=== PATIENT | male | born 1945 | race Hispanic/Latino ===

== ENCOUNTER → 2017-11-07 | Outpatient (CLI) | payer MEDICARE, OTHER ==
[~2017-11-07] MED LIST: IOPAMIDOL 370 MG/ML 200 ML INFUS..BTL INJ ONE; SODIUM CHLORIDE 0.9% 50ML 50 ML ONE
[2017-11-07 15:38] LABS: BASOPHILS # (AUTO) 0.1 (0.0-0.1); BASOPHILS % 0.5 % (0.0-1.0); EOSINOPHILS # (AUTO) 0.1 (0.0-0.4); HEMATOCRIT 41.1 % (38.2-49.6); HEMOGLOBIN 14.7 g/dL (14.0-18.0); LYMPHOCYTES # (AUTO) 2.7 (1.0-3.2); LYMPHOCYTES % 29.5 % (18.0-39.1); MEAN CORPUSCULAR HGB CONC 35.8 g/dL (31-35); MEAN CORPUSCULAR VOLUME 86.7 fL (81-99); MONOCYTES # (AUTO) 0.9 (0.2-0.8); MONOCYTES % 10.3 % (4.4-11.3); NEUTROPHILS # (AUTO) 5.3 (2.1-6.9); NEUTROPHILS % 58.4 % (38.7-80.0); PLATELET COUNT 163 x10e3/uL (140-360); RED BLOOD COUNT 4.74 x10e6/uL (4.3-5.7); RED CELL DISTRIBUTION WIDTH 12.3 % (11.7-14.4)
[2017-11-07 15:40] LABS: BILIRUBIN,URINE NEGATIVE (NEGATIVE); CLARITY,URINE CLEAR (CLEAR); COLOR,URINE YELLOW (YELLOW); KETONES,URINE NEGATIVE (NEGATIVE); LEUKOCYTE ESTERASE ,URINE NEGATIVE (NEGATIVE); NITRITE,URINE NEGATIVE (NEGATIVE); PROTEIN,URINE DIPSTICK NEGATIVE (NEGATIVE); URINE UROBILINOGEN 0.2 mg/dL (0.2 - 1)
[2017-11-07 15:52] LABS: ANION GAP 12.8 mmol/L (8-16); BACTERIA,URINE FEW /HPF; BLOOD UREA NITROGEN 18 mg/dL (7-26); BUN/CREATININE RATIO 23 (6-25); CALCIUM 9.1 mg/dL (8.4-10.2); CALCIUM OXALATE CRYSTALS,UR RARE (FEW); CARBON DIOXIDE 23 mmol/L (22-29); CHLORIDE 105 mmol/L (98-107); CREATININE, SERUM 0.78 mg/dL (0.72-1.25); EST GLOMERULAR FILTRATION RATE > 60 ML/MIN (60-); GLUCOSE 95 mg/dL (74-118); MUCUS,URINE RARE (RARE); POTASSIUM 3.8 mmol/L (3.5-5.1); RBC,URINE 21-50 /HPF (0-5); SODIUM 137 mmol/L (136-145)
--- NOTE | 2017-11-07 16:02 | Diagnostic Imaging Report ---
PROCEDURE: Frontal and lateral views of the chest. COMPARISON: None. INDICATIONS: PRE-OPERATIVE CHEST X-RAY FOR HERNIA SURGERY FINDINGS: Lines/tubes: None. Lungs: The lungs are well inflated and clear. There is no evidence of pneumonia or pulmonary edema. Pleura: There is no pleural effusion or pneumothorax. Heart and mediastinum: The heart and the mediastinum are normal. Aorta is mildly calcified and tortuous. Bones: No acute bony abnormality. Degenerative changes of thoracic spine. IMPRESSION: 1. No acute cardiopulmonary disease. Dictated by: Ehsan Contreras M.D. on 11/07/2017 at 16:06 Electronically approved by: Ehsan Contreras M.D. on 11/07/2017 at 16:06
--- NOTE | 2017-11-07 17:24 | Diagnostic Imaging Report ---
EXAM: CT Abdomen and Pelvis WITH contrast INDICATION: \[id number] \S\[id number] \S\VENTRAL HERNIA COMPARISON: None. TECHNIQUE: Abdomen and pelvis were scanned utilizing a multidetector helical scanner from the lung base to the pubic symphysis after administration of IV contrast. Coronal and sagittal reformations were obtained. Routine protocol was performed. Scan was performed when during portal venous phase. IV CONTRAST: 150 mL of Omnipaque 300 ORAL CONTRAST: Water COMPLICATIONS: None RADIATION DOSE: Total DLP: 524.33 mGy*cm Estimated effective dose: (DLP x 0.015 x size factor) mSv CTDIvol has been reviewed. It is below the limits set by the Radiation Protocol Committee (RPC). FINDINGS: LINES and TUBES: None. LOWER THORAX: Unremarkable HEPATOBILIARY: No focal hepatic lesions. No intrahepatic biliary ductal dilation. Mild common bile duct dilatation, likely due to reservoir effect. GALLBLADDER: Surgically absent. SPLEEN: No splenomegaly. PANCREAS: No focal masses or ductal dilatation. ADRENALS: No adrenal nodules KIDNEYS/URETERS: Kidneys enhance symmetrically. No hydronephrosis. No renal mass. Right renal subcentimeter hypodensities are too small to characterize. No stones. GI TRACT: No abnormal distention, wall thickening, or evidence of bowel obstruction. Appendix is normal. PELVIC ORGANS/BLADDER: Enlarged prostate gland with coarse calcification, measuring 5.2 cm in transverse diameter. Bladder is unremarkable. LYMPH NODES: No lymphadenopathy. VESSELS: Moderate aortoiliac atherosclerotic disease. PERITONEUM / RETROPERITONEUM: No free air or fluid. BONES: Irregular left iliac sclerotic focus. There is also right iliac irregular sclerotic focus with surrounding lucency (series 2, images 53 and 55). Mild irregularity of the lateral border of right iliac bone, could be related to prior injury. SOFT TISSUES: Supraumbilical midline ventral hernia, containing omental fat. The hernia neck measures 2.5 cm. The hernia sac measures approximately 3 x 4.9 cm. Small fat-containing umbilical and left inguinal hernias. IMPRESSION: 1. No acute inflammatory process in the abdomen/pelvis. 2. Supraumbilical midline ventral hernia, containing omental fat with neck measuring 2.5 cm. 3. Small umbilical and left inguinal fat-containing hernias. 4. Indeterminate bilateral iliac sclerotic foci, could represent bone islands. If clinically indicated, bone scan can be obtained for better evaluation. 5. Enlarged prostate gland. Signed by: Dr. Ehsan Contreras MD on 11/07/2017 5:20 PM
== END ==
LOC: CT 14:58
PROVIDERS: ATTEND Surgery
DX: K43.9 Ventral hernia without obstruction or gangrene (principal)
CPT/HCPCS: 36415; 71046; 74177; 80048; 81001; 85025; 93005; Q9967

== ENCOUNTER 2020-12-22 09:28 | Inpatient (IN) | payer MEDICARE, OTHER ==
[~2020-12-22] VITALS: Ht 162.6 cm; Wt 119.9 kg
[2020-12-22] MEDS ORDERED: ASPIRIN 81 MG CHEW TAB PO ONE ×2 (09:45)
[2020-12-22 10:08] LABS: HEMOGLOBIN 16.3 g/dL (14.0-18.0); LYMPHOCYTES # (AUTO) 1.2 (1.0-3.2); LYMPHOCYTES % 15.5 % (18.0-39.1); MEAN CORPUSCULAR HEMOGLOBIN 29.2 pg (28-32); MEAN CORPUSCULAR VOLUME 85.9 fL (81-99); MONOCYTES # (AUTO) 0.5 (0.2-0.8); MONOCYTES % 6.5 % (4.4-11.3); NEUTROPHILS # (AUTO) 5.6 (2.1-6.9); NEUTROPHILS % 75.8 % (38.7-80.0); PLATELET COUNT 182 x10e3/uL (140-360); RED BLOOD COUNT 5.59 x10e6/uL (4.3-5.7); RED CELL DISTRIBUTION WIDTH 13.9 % (11.7-14.4)
[2020-12-22] MEDS ORDERED: DEXAMETHASONE SOD PHOS 10 MG/1 ML VIAL IV ONE (10:30)
[2020-12-22 10:49] LABS: ALBUMIN 3.5 g/dL (3.5-5.0); ANION GAP 19.8 mmol/L (8-16); CALCIUM 8.3 mg/dL (8.4-10.2); CREATININE, SERUM 1.07 mg/dL (0.72-1.25); POTASSIUM 3.8 mmol/L (3.5-5.1)
[2020-12-22 11:01] LABS: CREATINE KINASE MB 2.3 ng/mL (0-5.0)
[2020-12-22] MEDS ORDERED: SUCCINYLCHOLINE CHLORIDE 20 MG/ML 10ML VIAL ONE (13:14)
[2020-12-22] MEDS ORDERED: WATER STERILE 10 ML VIAL ONE (13:14)
[2020-12-22] MEDS ORDERED: ETOMIDATE 2 MG/ML 10 ML INJ IV ONE (13:14)
[2020-12-22] MEDS ORDERED: MIDAZOLAM HCL 2 MG/2 ML VIAL ONE (13:14)
[2020-12-22] MEDS ORDERED: VECURONIUM BROMIDE FOR INJ 20 MG VIAL ONE (13:14)
[2020-12-22] MEDS ORDERED: REMDESIVIR 200MG 200 MG IV ONE (14:00)
[2020-12-22] MEDS: ASCORBIC ACID 500 MG TAB PO SCH (17:00)
[2020-12-22] MEDS: ENOXAPARIN 30 MG/0.3 ML SYR SC SCH (21:20)
[2020-12-23 06:18] LABS: HEMATOCRIT 47.1 % (38.2-49.6); HEMOGLOBIN 15.7 g/dL (14.0-18.0); LYMPHOCYTES # (AUTO) 0.8 (1.0-3.2); LYMPHOCYTES % 20.8 % (18.0-39.1); MEAN CORPUSCULAR HEMOGLOBIN 29.2 pg (28-32); MEAN CORPUSCULAR HGB CONC 33.3 g/dL (31-35); MEAN CORPUSCULAR VOLUME 87.7 fL (81-99); MONOCYTES # (AUTO) 0.5 (0.2-0.8); MONOCYTES % 12.5 % (4.4-11.3); NEUTROPHILS # (AUTO) 2.6 (2.1-6.9); NEUTROPHILS % 65.9 % (38.7-80.0); PLATELET COUNT 167 x10e3/uL (140-360); RED BLOOD COUNT 5.37 x10e6/uL (4.3-5.7); RED CELL DISTRIBUTION WIDTH 13.9 % (11.7-14.4)
[2020-12-23 06:46] LABS: CREATINE KINASE MB 3.3 ng/mL (0-5.0)
[2020-12-23 07:32] LABS: ALBUMIN 3.2 g/dL (3.5-5.0); ALBUMIN/GLOBULIN RATIO 1.1 (0.8-2.0); ANION GAP 19.5 mmol/L (8-16); CALCIUM 8.1 mg/dL (8.4-10.2); CREATININE, SERUM 0.78 mg/dL (0.72-1.25); POTASSIUM 3.5 mmol/L (3.5-5.1)
[2020-12-23] MEDS ORDERED: CEFTRIAXONE 2 GM VIAL ONE (08:42)
[2020-12-23] MEDS: ASCORBIC ACID 500 MG TAB PO SCH ×2 (08:49→17:46)
[2020-12-23] MEDS: ENOXAPARIN 30 MG/0.3 ML SYR SC SCH ×2 (08:49→20:00)
[2020-12-23] MEDS: ZINC SULFATE 50 MG CAP PO SCH (08:49)
[2020-12-23] MEDS: CEFTRIAXONE 2 GM in SODIUM CHLORIDE 0.9% 100 ML IV SCH (08:49)
[2020-12-23] MEDS: BARICITINIB 2 MG TABLET PO SCH (13:06)
[2020-12-23] MEDS ORDERED: REMDESIVIR 100MG 100 MG IV SCH (14:00)
[2020-12-23 21:47] VITALS: BP 125/91
[2020-12-23] MEDS ORDERED: TIMOLOL MALEAT1 EACH OU (22:45)
[2020-12-23] MEDS ORDERED: LATANOPROST2.5 ML OD (22:45)
[2020-12-23] MEDS ORDERED: HYDROCHLOROTH12.5 MG PO (22:45)
[2020-12-23] MEDS ORDERED: FINASTERIDE5 MG PO (22:45)
[2020-12-23] MEDS ORDERED: SILODOSIN8 MG PO (22:45)
[2020-12-24] VITALS (8 sets, daily range): BP systolic 137–158; BP diastolic 77–94
[2020-12-24] MEDS: BARICITINIB 2 MG TABLET PO SCH (08:59)
[2020-12-24] MEDS: ENOXAPARIN 30 MG/0.3 ML SYR SC SCH ×2 (08:59→20:23)
[2020-12-24] MEDS: CEFTRIAXONE 2 GM in SODIUM CHLORIDE 0.9% 100 ML IV SCH (08:59)
[2020-12-24] MEDS: ASCORBIC ACID 500 MG TAB PO SCH ×2 (08:59→17:48)
[2020-12-24] MEDS: ZINC SULFATE 50 MG CAP PO SCH (08:59)
[2020-12-24] MEDS: REMDESIVIR 100MG 100 MG IV SCH (08:59)
[2020-12-24 10:51] LABS: BASOPHILS % 0.1 % (0.0-1.0); HEMATOCRIT 46.4 % (38.2-49.6); HEMOGLOBIN 15.7 g/dL (14.0-18.0); LYMPHOCYTES # (AUTO) 2.2 (1.0-3.2); LYMPHOCYTES % 21.9 % (18.0-39.1); MEAN CORPUSCULAR HEMOGLOBIN 29.3 pg (28-32); MEAN CORPUSCULAR HGB CONC 33.8 g/dL (31-35); MEAN CORPUSCULAR VOLUME 86.6 fL (81-99); MONOCYTES # (AUTO) 0.8 (0.2-0.8); MONOCYTES % 7.6 % (4.4-11.3); NEUTROPHILS # (AUTO) 6.9 (2.1-6.9); NEUTROPHILS % 69.8 % (38.7-80.0); PLATELET COUNT 234 x10e3/uL (140-360); RED BLOOD COUNT 5.36 x10e6/uL (4.3-5.7)
[2020-12-24 11:46] LABS: ALBUMIN/GLOBULIN RATIO 0.9 (0.8-2.0); ANION GAP 16.2 mmol/L (8-16); CALCIUM 8.2 mg/dL (8.4-10.2); CREATININE, SERUM 0.79 mg/dL (0.72-1.25); POTASSIUM 3.2 mmol/L (3.5-5.1)
[2020-12-24] MEDS ORDERED: POTASSIUM CHLORIDE 20 MEQ TAB CR PO ONE (16:30)
[2020-12-24] MEDS: TIMOLOL MALEATE 0.5% OPTH DRP 5 ML BTL OU SCH (17:41)
[2020-12-24] MEDS: LATANOPROST(OPTH) 2.5 ML BTL OD SCH (20:23)
[2020-12-24] MEDS: FINASTERIDE 5 MG TAB PO SCH (20:23)
[2020-12-25] VITALS (7 sets, daily range): BP systolic 150–155; BP diastolic 83–109
[2020-12-25] MEDS: REMDESIVIR 100MG 100 MG IV SCH (08:53)
[2020-12-25] MEDS ORDERED: SODIUM CHLORIDE 0.9% 250ML 250 ML ONE (09:12)
[2020-12-25] MEDS: ASCORBIC ACID 500 MG TAB PO SCH ×2 (09:17→17:24)
[2020-12-25] MEDS: CEFTRIAXONE 2 GM in SODIUM CHLORIDE 0.9% 100 ML IV SCH (09:17)
[2020-12-25] MEDS: ZINC SULFATE 50 MG CAP PO SCH (09:17)
[2020-12-25] MEDS: SILODOSIN 8 MG PO SCH (09:17)
[2020-12-25] MEDS: ENOXAPARIN 30 MG/0.3 ML SYR SC SCH ×2 (09:17→20:12)
[2020-12-25] MEDS: HYDROCHLOROTHIAZIDE 25 MG TAB PO SCH (09:17)
[2020-12-25] MEDS: TIMOLOL MALEATE 0.5% OPTH DRP 5 ML BTL OU SCH ×2 (09:17→17:24)
[2020-12-25] MEDS: BARICITINIB 2 MG TABLET PO SCH (09:17)
[2020-12-25 09:39] LABS: BASOPHILS % 0.1 % (0.0-1.0); EOSINOPHILS % 0.1 % (0.0-6.0); HEMATOCRIT 46.2 % (38.2-49.6); LYMPHOCYTES # (AUTO) 1.6 (1.0-3.2); LYMPHOCYTES % 15.6 % (18.0-39.1); MEAN CORPUSCULAR HEMOGLOBIN 29.4 pg (28-32); MEAN CORPUSCULAR HGB CONC 34.6 g/dL (31-35); MEAN CORPUSCULAR VOLUME 84.9 fL (81-99); MONOCYTES # (AUTO) 0.7 (0.2-0.8); MONOCYTES % 6.7 % (4.4-11.3); NEUTROPHILS % 76.7 % (38.7-80.0); PLATELET COUNT 235 x10e3/uL (140-360); RED BLOOD COUNT 5.44 x10e6/uL (4.3-5.7); RED CELL DISTRIBUTION WIDTH 13.8 % (11.7-14.4)
[2020-12-25 10:10] LABS: ALBUMIN/GLOBULIN RATIO 0.9 (0.8-2.0); ANION GAP 14.3 mmol/L (8-16); CALCIUM 8.2 mg/dL (8.4-10.2); CREATININE, SERUM 0.73 mg/dL (0.72-1.25); POTASSIUM 3.3 mmol/L (3.5-5.1)
[2020-12-25] MEDS ORDERED: REMDESIVIR 100MG 100 MG in SODIUM CHLORIDE 0.9% 100 ML 100 ML IV SCH (14:00)
[2020-12-25] MEDS: REMDESIVIR 100MG 100 MG in SODIUM CHLORIDE 0.9% 100 ML IV SCH (14:34)
[2020-12-25] MEDS: FINASTERIDE 5 MG TAB PO SCH (20:11)
[2020-12-25] MEDS: LATANOPROST(OPTH) 2.5 ML BTL OD SCH (20:11)
[2020-12-26] VITALS (8 sets, daily range): BP systolic 131–165; BP diastolic 80–96
[2020-12-26 08:31] LABS: BASOPHILS % 0.2 % (0.0-1.0); EOSINOPHILS % 0.2 % (0.0-6.0); HEMATOCRIT 46.7 % (38.2-49.6); HEMOGLOBIN 16.5 g/dL (14.0-18.0); LYMPHOCYTES # (AUTO) 1.2 (1.0-3.2); LYMPHOCYTES % 10.1 % (18.0-39.1); MEAN CORPUSCULAR HEMOGLOBIN 29.6 pg (28-32); MEAN CORPUSCULAR HGB CONC 35.3 g/dL (31-35); MEAN CORPUSCULAR VOLUME 83.8 fL (81-99); MONOCYTES # (AUTO) 0.8 (0.2-0.8); MONOCYTES % 6.1 % (4.4-11.3); NEUTROPHILS # (AUTO) 10.1 (2.1-6.9); NEUTROPHILS % 82.7 % (38.7-80.0); PLATELET COUNT 221 x10e3/uL (140-360); RED BLOOD COUNT 5.57 x10e6/uL (4.3-5.7); RED CELL DISTRIBUTION WIDTH 13.4 % (11.7-14.4)
[2020-12-26] MEDS: ENOXAPARIN 30 MG/0.3 ML SYR SC SCH ×2 (08:40→21:04)
[2020-12-26] MEDS: ZINC SULFATE 50 MG CAP PO SCH (08:40)
[2020-12-26] MEDS: BARICITINIB 2 MG TABLET PO SCH (08:40)
[2020-12-26] MEDS: SILODOSIN 8 MG PO SCH (08:40)
[2020-12-26] MEDS: HYDROCHLOROTHIAZIDE 25 MG TAB PO SCH (08:40)
[2020-12-26] MEDS: TIMOLOL MALEATE 0.5% OPTH DRP 5 ML BTL OU SCH ×2 (08:40→17:37)
[2020-12-26] MEDS: ASCORBIC ACID 500 MG TAB PO SCH ×2 (08:40→17:36)
[2020-12-26] MEDS: CEFTRIAXONE 2 GM in SODIUM CHLORIDE 0.9% 100 ML IV SCH (08:40)
[2020-12-26 08:42] LABS: ALBUMIN 2.9 g/dL (3.5-5.0); ALBUMIN/GLOBULIN RATIO 0.9 (0.8-2.0); ANION GAP 17.9 mmol/L (8-16); CALCIUM 8.3 mg/dL (8.4-10.2); CREATININE, SERUM 0.73 mg/dL (0.72-1.25)
[2020-12-26 08:44] LABS: POTASSIUM 2.9 mmol/L (3.5-5.1)
[2020-12-26] MEDS ORDERED: SODIUM CHLORIDE 0.9% 1000ML 1,000 ML ONE (12:40)
[2020-12-26] MEDS ORDERED: POTASSIUM CHLORIDE 10MEQ/100ML 400 ML IV ONE (13:00)
[2020-12-26] MEDS ORDERED: POTASSIUM CHLORIDE 10MEQ/100ML 100 ML IV ONE (13:00)
[2020-12-26] MEDS ORDERED: POTASSIUM CHLORIDE 20 MEQ TAB CR PO ONE (13:00)
[2020-12-26] MEDS ORDERED: SODIUM CHLORIDE 0.9% 100 ML ONE (15:39)
[2020-12-26] MEDS: REMDESIVIR 100MG 100 MG in SODIUM CHLORIDE 0.9% 100 ML IV SCH (15:41)
[2020-12-26] MEDS: FINASTERIDE 5 MG TAB PO SCH (21:03)
[2020-12-26] MEDS: LATANOPROST(OPTH) 2.5 ML BTL OD SCH (21:04)
[2020-12-26 22:34] LABS: ANION GAP 13.6 mmol/L (8-16); CREATININE, SERUM 0.65 mg/dL (0.72-1.25); POTASSIUM 3.6 mmol/L (3.5-5.1)
[2020-12-26 22:35] LABS: CALCIUM 7.8 mg/dL (8.4-10.2)
[2020-12-27] VITALS (8 sets, daily range): BP systolic 136–156; BP diastolic 78–93
[2020-12-27 06:24] LABS: ALBUMIN 2.7 g/dL (3.5-5.0); ALBUMIN/GLOBULIN RATIO 0.9 (0.8-2.0); ANION GAP 18.2 mmol/L (8-16); CALCIUM 8.3 mg/dL (8.4-10.2); CREATININE, SERUM 0.76 mg/dL (0.72-1.25); POTASSIUM 3.2 mmol/L (3.5-5.1)
[2020-12-27] MEDS: CEFTRIAXONE 2 GM in SODIUM CHLORIDE 0.9% 100 ML IV SCH (09:01)
[2020-12-27] MEDS: ZINC SULFATE 50 MG CAP PO SCH (09:01)
[2020-12-27] MEDS: SILODOSIN 8 MG PO SCH (09:01)
[2020-12-27] MEDS: TIMOLOL MALEATE 0.5% OPTH DRP 5 ML BTL OU SCH ×2 (09:01→17:12)
[2020-12-27] MEDS: BARICITINIB 2 MG TABLET PO SCH (09:01)
[2020-12-27] MEDS: ASCORBIC ACID 500 MG TAB PO SCH ×2 (09:01→17:12)
[2020-12-27] MEDS: ENOXAPARIN 30 MG/0.3 ML SYR SC SCH ×2 (09:02→20:57)
[2020-12-27] MEDS ORDERED: CEFTRIAXONE 2 GM VIAL ONE (09:13)
[2020-12-27] MEDS ORDERED: POTASSIUM CHLORIDE 10MEQ EA PO NR (10:00)
[2020-12-27] MEDS ORDERED: POTASSIUM CHLORIDE 10MEQ EA PO ONE (16:30)
[2020-12-27] MEDS: LATANOPROST(OPTH) 2.5 ML BTL OD SCH (20:57)
[2020-12-27] MEDS: FINASTERIDE 5 MG TAB PO SCH (20:57)
[2020-12-28] VITALS (10 sets, daily range): BP systolic 120–155; BP diastolic 62–92
[2020-12-28 07:27] LABS: ALBUMIN 2.6 g/dL (3.5-5.0); ALBUMIN/GLOBULIN RATIO 0.8 (0.8-2.0); ANION GAP 16.9 mmol/L (8-16); CALCIUM 8.8 mg/dL (8.4-10.2); CREATININE, SERUM 0.76 mg/dL (0.72-1.25); POTASSIUM 3.9 mmol/L (3.5-5.1)
[2020-12-28 07:32] LABS: BASOPHILS % 0.2 % (0.0-1.0); HEMATOCRIT 45.5 % (38.2-49.6); HEMOGLOBIN 15.8 g/dL (14.0-18.0); LYMPHOCYTES # (AUTO) 0.6 (1.0-3.2); LYMPHOCYTES % 3.1 % (18.0-39.1); MEAN CORPUSCULAR HEMOGLOBIN 29.4 pg (28-32); MEAN CORPUSCULAR HGB CONC 34.7 g/dL (31-35); MEAN CORPUSCULAR VOLUME 84.7 fL (81-99); MONOCYTES % 5.7 % (4.4-11.3); NEUTROPHILS % 90.2 % (38.7-80.0); PLATELET COUNT 242 x10e3/uL (140-360); RED BLOOD COUNT 5.37 x10e6/uL (4.3-5.7); RED CELL DISTRIBUTION WIDTH 13.5 % (11.7-14.4)
[2020-12-28] MEDS: BARICITINIB 2 MG TABLET PO SCH (09:35)
[2020-12-28] MEDS: ENOXAPARIN 30 MG/0.3 ML SYR SC SCH ×2 (09:36→21:00)
[2020-12-28] MEDS: ZINC SULFATE 50 MG CAP PO SCH (09:36)
[2020-12-28] MEDS: ASCORBIC ACID 500 MG TAB PO SCH ×2 (09:36→17:00)
[2020-12-28] MEDS: DEXAMETHASONE SOD PHOS 10 MG/1 ML VIAL IV SCH (09:37)
[2020-12-28] MEDS: TIMOLOL MALEATE 0.5% OPTH DRP 5 ML BTL OU SCH ×2 (09:55→17:00)
[2020-12-28] MEDS: SILODOSIN 8 MG PO SCH (09:56)
[2020-12-28] MEDS ORDERED: HYDRALAZINE HCL 20 MG/ML VIAL IV PRN (13:00)
[2020-12-28] MEDS ORDERED: B&O 60MG R/S 60 MG SUPP PR ONE (20:15)
[2020-12-28] MEDS: OXYBUTYNIN CHLORIDE 5 MG TAB PO SCH (20:19)
[2020-12-28] MEDS: FINASTERIDE 5 MG TAB PO SCH (21:00)
[2020-12-28] MEDS: LATANOPROST(OPTH) 2.5 ML BTL OD SCH (21:00)
[2020-12-29] VITALS (8 sets, daily range): BP systolic 135–159; BP diastolic 80–87
[2020-12-29] MEDS: TIMOLOL MALEATE 0.5% OPTH DRP 5 ML BTL OU SCH ×2 (08:48→17:18)
[2020-12-29] MEDS: BARICITINIB 2 MG TABLET PO SCH (08:48)
[2020-12-29] MEDS: ZINC SULFATE 50 MG CAP PO SCH (08:48)
[2020-12-29] MEDS: ENOXAPARIN 30 MG/0.3 ML SYR SC SCH (08:48)
[2020-12-29] MEDS: ASCORBIC ACID 500 MG TAB PO SCH ×2 (08:48→17:18)
[2020-12-29] MEDS: DEXAMETHASONE SOD PHOS 10 MG/1 ML VIAL IV SCH (08:48)
[2020-12-29] MEDS: OXYBUTYNIN CHLORIDE 5 MG TAB PO SCH (08:48)
[2020-12-29] MEDS: SILODOSIN 8 MG PO SCH (08:49)
[2020-12-29 09:05] LABS: BASOPHILS # (AUTO) 0.1 (0.0-0.1); BASOPHILS % 0.3 % (0.0-1.0); EOSINOPHILS # (AUTO) 0.1 (0.0-0.4); EOSINOPHILS % 0.7 % (0.0-6.0); HEMATOCRIT 50.4 % (38.2-49.6); HEMOGLOBIN 17.2 g/dL (14.0-18.0); LYMPHOCYTES # (AUTO) 1.1 (1.0-3.2); LYMPHOCYTES % 5.4 % (18.0-39.1); MEAN CORPUSCULAR HEMOGLOBIN 29.5 pg (28-32); MEAN CORPUSCULAR HGB CONC 34.1 g/dL (31-35); MEAN CORPUSCULAR VOLUME 86.4 fL (81-99); MONOCYTES # (AUTO) 0.9 (0.2-0.8); MONOCYTES % 4.5 % (4.4-11.3); NEUTROPHILS # (AUTO) 17.4 (2.1-6.9); PLATELET COUNT 200 x10e3/uL (140-360); RED BLOOD COUNT 5.83 x10e6/uL (4.3-5.7); RED CELL DISTRIBUTION WIDTH 14.1 % (11.7-14.4)
[2020-12-29 09:17] LABS: ALBUMIN 2.8 g/dL (3.5-5.0); ALBUMIN/GLOBULIN RATIO 0.7 (0.8-2.0); CREATININE, SERUM 0.79 mg/dL (0.72-1.25)
[2020-12-29] MEDS: ACETAMINOPHEN 325 MG TAB PO PRN (11:35)
[2020-12-29] MEDS: LATANOPROST(OPTH) 2.5 ML BTL OD SCH (21:51)
[2020-12-29] MEDS: FINASTERIDE 5 MG TAB PO SCH (21:51)
[2020-12-30] VITALS (24 sets, daily range): BP systolic 61–188; BP diastolic 53–107
[2020-12-30 06:24] LABS: BASOPHILS % 0.2 % (0.0-1.0); EOSINOPHILS % 0.1 % (0.0-6.0); HEMATOCRIT 45.5 % (38.2-49.6); HEMOGLOBIN 15.9 g/dL (14.0-18.0); LYMPHOCYTES # (AUTO) 0.7 (1.0-3.2); LYMPHOCYTES % 3.8 % (18.0-39.1); MEAN CORPUSCULAR HEMOGLOBIN 29.6 pg (28-32); MEAN CORPUSCULAR HGB CONC 34.9 g/dL (31-35); MEAN CORPUSCULAR VOLUME 84.7 fL (81-99); MONOCYTES # (AUTO) 0.8 (0.2-0.8); MONOCYTES % 4.2 % (4.4-11.3); NEUTROPHILS # (AUTO) 16.3 (2.1-6.9); NEUTROPHILS % 90.6 % (38.7-80.0); PLATELET COUNT 202 x10e3/uL (140-360); RED BLOOD COUNT 5.37 x10e6/uL (4.3-5.7); RED CELL DISTRIBUTION WIDTH 13.9 % (11.7-14.4)
[2020-12-30 07:00] LABS: ALBUMIN 2.6 g/dL (3.5-5.0); ALBUMIN/GLOBULIN RATIO 0.7 (0.8-2.0); ANION GAP 16.5 mmol/L (8-16); CALCIUM 8.8 mg/dL (8.4-10.2); CREATININE, SERUM 0.76 mg/dL (0.72-1.25); POTASSIUM 3.5 mmol/L (3.5-5.1)
[2020-12-30] MEDS ORDERED: FENTANYL 2000MCG/NS 250 250 ML ONE (07:16)
[2020-12-30] MEDS ORDERED: NOREPINEPHRINE 8 MG/D5W 250 ML 250 ML ONE ×2 (07:16→19:49)
[2020-12-30] MEDS ORDERED: MIDAZOLAM HCL 5MG/ML 10ML VIAL 100 ML IV ONE (07:17)
[2020-12-30] MEDS: FENTANYL 2000MCG/NS 250 250 ML IV PRN ×2 (07:30→18:17)
[2020-12-30] MEDS: MIDAZOLAM HCL 5MG/ML 10ML VIAL 100 ML IV PRN (07:30)
[2020-12-30] MEDS ORDERED: NOREPINEPHRINE 8 MG/D5W 250 ML 250 ML IV SCH (07:30)
[2020-12-30] MEDS ORDERED: SODIUM CHLORIDE 0.9% 1000ML 1,000 ML IV ONE (08:30)
[2020-12-30] MEDS: OXYBUTYNIN CHLORIDE 5 MG TAB PO SCH (09:00)
[2020-12-30] MEDS: ZINC SULFATE 50 MG CAP PO SCH (09:00)
[2020-12-30] MEDS: BARICITINIB 2 MG TABLET PO SCH (09:00)
[2020-12-30] MEDS: ASCORBIC ACID 500 MG TAB PO SCH ×2 (09:00→19:16)
[2020-12-30] MEDS: SILODOSIN 8 MG PO SCH (09:00)
[2020-12-30] MEDS: TIMOLOL MALEATE 0.5% OPTH DRP 5 ML BTL OU SCH ×2 (09:00→17:00)
[2020-12-30 09:52] LABS: ABG PH 7.25 (7.35-7.45)
[2020-12-30 09:53] LABS: ABG PCO2 73 mmHg (35-45)
[2020-12-30 09:54] LABS: ABG HCO3 32 mmol/L (22-26); ABG PO2 141 mmHg (80-105); ABG TCO2 34
[2020-12-30] MEDS ORDERED: SODIUM CHLORIDE 0.9% 1000ML 1,000 ML ONE (12:27)
[2020-12-30] MEDS: DEXAMETHASONE SOD PHOS 10 MG/1 ML VIAL IV SCH (12:42)
[2020-12-30] MEDS: ENOXAPARIN SOD INJ 40 MG/0.4 ML SYR SC SCH ×2 (12:43→20:55)
[2020-12-30] MEDS ORDERED: ROCURONIUM BROMIDE 1,250 MG in SODIUM CHLORIDE 0.9% 250ML 125 ML IV PRN (19:15)
[2020-12-30] MEDS ORDERED: VECURONIUM BROMIDE FOR INJ 20 MG VIAL IV NR (19:30)
[2020-12-30] MEDS ORDERED: WATER STERILE 10 ML VIAL IV NR (19:30)
[2020-12-30] MEDS ORDERED: ROCURONIUM 1250MG/NS 250 250 ML IV PRN (20:00)
[2020-12-30] MEDS: NOREPINEPHRINE 8 MG/D5W 250 ML 250 ML IV SCH (20:32)
[2020-12-30] MEDS: LATANOPROST(OPTH) 2.5 ML BTL OD SCH (20:54)
[2020-12-30] MEDS: FINASTERIDE 5 MG TAB PO SCH (20:55)
[2020-12-31] VITALS (22 sets, daily range): BP systolic 108–147; BP diastolic 52–65
[2020-12-31] MEDS: PIPERACILLIN/TAZOBACTAM 3.375 GM in SODIUM CHLORIDE 0.9% 50ML 50 ML IV SCH ×4 (02:01→17:41)
[2020-12-31 06:10] LABS: BASOPHILS % 0.1 % (0.0-1.0); HEMATOCRIT 42.5 % (38.2-49.6); LYMPHOCYTES # (AUTO) 0.5 (1.0-3.2); LYMPHOCYTES % 3.2 % (18.0-39.1); MEAN CORPUSCULAR HEMOGLOBIN 29.4 pg (28-32); MEAN CORPUSCULAR HGB CONC 32.9 g/dL (31-35); MEAN CORPUSCULAR VOLUME 89.3 fL (81-99); MONOCYTES # (AUTO) 0.6 (0.2-0.8); MONOCYTES % 4.4 % (4.4-11.3); NEUTROPHILS # (AUTO) 12.9 (2.1-6.9); NEUTROPHILS % 91.3 % (38.7-80.0); PLATELET COUNT 160 x10e3/uL (140-360); RED BLOOD COUNT 4.76 x10e6/uL (4.3-5.7); RED CELL DISTRIBUTION WIDTH 13.9 % (11.7-14.4)
[2020-12-31 06:39] LABS: ANION GAP 13.4 mmol/L (8-16); CREATININE, SERUM 1.43 mg/dL (0.72-1.25); POTASSIUM 4.4 mmol/L (3.5-5.1)
[2020-12-31 06:40] LABS: ALBUMIN/GLOBULIN RATIO 0.6 (0.8-2.0); CALCIUM 7.2 mg/dL (8.4-10.2)
[2020-12-31 07:51] LABS: ABG HCO3 24 mmol/L (22-26); ABG PCO2 42 mmHg (35-45); ABG PH 7.37 (7.35-7.45); ABG PO2 121 mmHg (80-105); ABG TCO2 26
[2020-12-31] MEDS: SILODOSIN 8 MG PO SCH (09:00)
[2020-12-31] MEDS: OXYBUTYNIN CHLORIDE 5 MG TAB PO SCH (09:00)
[2020-12-31] MEDS: FENTANYL 2000MCG/NS 250 250 ML IV PRN ×2 (09:18→15:26)
[2020-12-31] MEDS: DEXAMETHASONE SOD PHOS 10 MG/1 ML VIAL IV SCH (11:45)
[2020-12-31] MEDS: ASCORBIC ACID 500 MG TAB PO SCH ×2 (11:46→17:41)
[2020-12-31] MEDS: ENOXAPARIN SOD INJ 40 MG/0.4 ML SYR SC SCH ×2 (11:46→22:07)
[2020-12-31] MEDS: ZINC SULFATE 50 MG CAP PO SCH (11:46)
[2020-12-31] MEDS: TIMOLOL MALEATE 0.5% OPTH DRP 5 ML BTL OU SCH ×2 (11:46→17:41)
[2020-12-31] MEDS: BARICITINIB 2 MG TABLET PO SCH (11:46)
[2020-12-31] MEDS: MIDAZOLAM HCL 5MG/ML 10ML VIAL 100 ML IV PRN (12:23)
[2020-12-31] MEDS: SODIUM CHLORIDE 0.9% 1000ML 1,000 ML IV SCH (18:50)
[2020-12-31] MEDS: NOREPINEPHRINE 8 MG/D5W 250 ML 250 ML IV SCH (20:59)
[2020-12-31] MEDS: FINASTERIDE 5 MG TAB PO SCH (21:00)
[2020-12-31] MEDS: LATANOPROST(OPTH) 2.5 ML BTL OD SCH (21:00)
[2021-01-01] VITALS (23 sets, daily range): BP systolic 109–136; BP diastolic 48–66
[2021-01-01] MEDS ORDERED: SODIUM CHLORIDE 0.9% 50ML 50 ML ONE (01:28)
[2021-01-01] MEDS: PIPERACILLIN/TAZOBACTAM 3.375 GM in SODIUM CHLORIDE 0.9% 50ML 50 ML IV SCH ×4 (03:14→17:27)
[2021-01-01 06:22] LABS: BASOPHILS % 0.1 % (0.0-1.0); HEMOGLOBIN 11.5 g/dL (14.0-18.0); LYMPHOCYTES # (AUTO) 0.4 (1.0-3.2); MEAN CORPUSCULAR HEMOGLOBIN 29.6 pg (28-32); MEAN CORPUSCULAR HGB CONC 32.9 g/dL (31-35); MEAN CORPUSCULAR VOLUME 90.2 fL (81-99); MONOCYTES # (AUTO) 0.6 (0.2-0.8); MONOCYTES % 5.7 % (4.4-11.3); NEUTROPHILS # (AUTO) 9.1 (2.1-6.9); NEUTROPHILS % 89.1 % (38.7-80.0); PLATELET COUNT 142 x10e3/uL (140-360); RED BLOOD COUNT 3.88 x10e6/uL (4.3-5.7); RED CELL DISTRIBUTION WIDTH 14.2 % (11.7-14.4)
[2021-01-01 06:50] LABS: ALBUMIN 1.6 g/dL (3.5-5.0); ALBUMIN/GLOBULIN RATIO 0.6 (0.8-2.0); ANION GAP 12.1 mmol/L (8-16); CALCIUM 7.1 mg/dL (8.4-10.2); CREATININE, SERUM 0.98 mg/dL (0.72-1.25); POTASSIUM 4.1 mmol/L (3.5-5.1)
[2021-01-01] MEDS: SODIUM CHLORIDE 0.9% 1000ML 1,000 ML IV SCH (07:20)
[2021-01-01] MEDS: OXYBUTYNIN CHLORIDE 5 MG TAB PO SCH (07:34)
[2021-01-01] MEDS: SILODOSIN 8 MG PO SCH (07:34)
[2021-01-01 08:30] LABS: ABG HCO3 26 mmol/L (22-26); ABG PCO2 40 mmHg (35-45); ABG PH 7.41 (7.35-7.45); ABG PO2 76 mmHg (80-105); ABG TCO2 27
[2021-01-01] MEDS: ASCORBIC ACID 500 MG TAB PO SCH ×2 (09:30→17:27)
[2021-01-01] MEDS: DEXAMETHASONE SOD PHOS 10 MG/1 ML VIAL IV SCH (09:30)
[2021-01-01] MEDS: ZINC SULFATE 50 MG CAP PO SCH (09:30)
[2021-01-01] MEDS: BARICITINIB 2 MG TABLET PO SCH (09:30)
[2021-01-01] MEDS: TIMOLOL MALEATE 0.5% OPTH DRP 5 ML BTL OU SCH ×2 (09:30→17:00)
[2021-01-01] MEDS: ENOXAPARIN SOD INJ 40 MG/0.4 ML SYR SC SCH ×2 (09:30→22:40)
[2021-01-01] MEDS: FENTANYL 2000MCG/NS 250 250 ML IV PRN ×2 (09:31→17:27)
[2021-01-01] MEDS: MIDAZOLAM HCL 5MG/ML 10ML VIAL 100 ML IV PRN ×2 (09:32→17:28)
[2021-01-01] MEDS: NOREPINEPHRINE 8 MG/D5W 250 ML 250 ML IV SCH (20:00)
[2021-01-01] MEDS: FINASTERIDE 5 MG TAB PO SCH (21:00)
[2021-01-01] MEDS: LATANOPROST(OPTH) 2.5 ML BTL OD SCH (21:00)
[2021-01-02] VITALS (27 sets, daily range): BP systolic 117–148; BP diastolic 49–95
[2021-01-02] MEDS: PIPERACILLIN/TAZOBACTAM 3.375 GM in SODIUM CHLORIDE 0.9% 50ML 50 ML IV SCH ×3 (02:41→11:28)
[2021-01-02 06:00] LABS: BASOPHILS % 0.1 % (0.0-1.0); HEMATOCRIT 33.6 % (38.2-49.6); HEMOGLOBIN 11.9 g/dL (14.0-18.0); LYMPHOCYTES # (AUTO) 0.3 (1.0-3.2); LYMPHOCYTES % 4.1 % (18.0-39.1); MEAN CORPUSCULAR HEMOGLOBIN 33.1 pg (28-32); MEAN CORPUSCULAR HGB CONC 35.4 g/dL (31-35); MEAN CORPUSCULAR VOLUME 93.3 fL (81-99); MONOCYTES # (AUTO) 0.7 (0.2-0.8); MONOCYTES % 8.1 % (4.4-11.3); NEUTROPHILS # (AUTO) 7.2 (2.1-6.9); NEUTROPHILS % 86.5 % (38.7-80.0); PLATELET COUNT 133 x10e3/uL (140-360); RED CELL DISTRIBUTION WIDTH 17.2 % (11.7-14.4)
[2021-01-02 06:22] LABS: ALBUMIN 1.8 g/dL (3.5-5.0); ALBUMIN/GLOBULIN RATIO 0.6 (0.8-2.0); ANION GAP 12.5 mmol/L (8-16); CALCIUM 7.4 mg/dL (8.4-10.2); CREATININE, SERUM 0.94 mg/dL (0.72-1.25); POTASSIUM 4.5 mmol/L (3.5-5.1)
[2021-01-02] MEDS: FENTANYL 2000MCG/NS 250 250 ML IV PRN ×3 (07:36→18:39)
[2021-01-02 08:47] LABS: ABG HCO3 25 mmol/L (22-26); ABG PCO2 44 mmHg (35-45); ABG PH 7.36 (7.35-7.45); ABG PO2 92 mmHg (80-105); ABG TCO2 26
[2021-01-02] MEDS: SILODOSIN 8 MG PO SCH (09:00)
[2021-01-02] MEDS: TIMOLOL MALEATE 0.5% OPTH DRP 5 ML BTL OU SCH ×2 (09:00→17:00)
[2021-01-02] MEDS: OXYBUTYNIN CHLORIDE 5 MG TAB PO SCH (09:00)
[2021-01-02] MEDS: DEXAMETHASONE SOD PHOS 10 MG/1 ML VIAL IV SCH (09:55)
[2021-01-02] MEDS: ENOXAPARIN SOD INJ 40 MG/0.4 ML SYR SC SCH ×2 (09:56→20:49)
[2021-01-02] MEDS: ZINC SULFATE 50 MG CAP PO SCH (09:56)
[2021-01-02] MEDS: BARICITINIB 2 MG TABLET PO SCH (09:56)
[2021-01-02] MEDS: ASCORBIC ACID 500 MG TAB PO SCH ×2 (09:56→17:03)
[2021-01-02] MEDS: MIDAZOLAM HCL 5MG/ML 10ML VIAL 100 ML IV PRN ×2 (11:29→16:19)
[2021-01-02] MEDS: NOREPINEPHRINE 8 MG/D5W 250 ML 250 ML IV SCH (20:00)
[2021-01-02] MEDS: LATANOPROST(OPTH) 2.5 ML BTL OD SCH (20:49)
[2021-01-02] MEDS: FINASTERIDE 5 MG TAB PO SCH (20:49)
[2021-01-03] VITALS (22 sets, daily range): BP systolic 122–152; BP diastolic 51–65
[2021-01-03 07:00] LABS: BASOPHILS % 0.1 % (0.0-1.0); HEMOGLOBIN 11.9 g/dL (14.0-18.0); LYMPHOCYTES # (AUTO) 0.4 (1.0-3.2); LYMPHOCYTES % 5.3 % (18.0-39.1); MEAN CORPUSCULAR HEMOGLOBIN 32.1 pg (28-32); MEAN CORPUSCULAR VOLUME 94.3 fL (81-99); MONOCYTES # (AUTO) 0.7 (0.2-0.8); MONOCYTES % 8.4 % (4.4-11.3); NEUTROPHILS % 84.5 % (38.7-80.0); PLATELET COUNT 200 x10e3/uL (140-360); RED BLOOD COUNT 3.71 x10e6/uL (4.3-5.7); RED CELL DISTRIBUTION WIDTH 15.3 % (11.7-14.4)
[2021-01-03 07:34] LABS: ALBUMIN 1.8 g/dL (3.5-5.0); ALBUMIN/GLOBULIN RATIO 0.6 (0.8-2.0); ANION GAP 10.8 mmol/L (8-16); CALCIUM 7.5 mg/dL (8.4-10.2); CREATININE, SERUM 0.78 mg/dL (0.72-1.25); POTASSIUM 4.8 mmol/L (3.5-5.1)
[2021-01-03] MEDS: FENTANYL 2000MCG/NS 250 250 ML IV PRN ×2 (07:35→17:47)
[2021-01-03] MEDS: MIDAZOLAM HCL 5MG/ML 10ML VIAL 100 ML IV PRN ×3 (07:36→17:48)
[2021-01-03] MEDS: DEXAMETHASONE SOD PHOS 10 MG/1 ML VIAL IV SCH (09:00)
[2021-01-03] MEDS: SILODOSIN 8 MG PO SCH (09:00)
[2021-01-03] MEDS: OXYBUTYNIN CHLORIDE 5 MG TAB PO SCH (09:00)
[2021-01-03] MEDS: TIMOLOL MALEATE 0.5% OPTH DRP 5 ML BTL OU SCH ×2 (09:00→17:00)
[2021-01-03 10:07] LABS: ABG PCO2 47 mmHg (35-45); ABG PH 7.38 (7.35-7.45)
[2021-01-03 10:08] LABS: ABG HCO3 28 mmol/L (22-26); ABG PO2 98 mmHg (80-105); ABG TCO2 29
[2021-01-03] MEDS: ASCORBIC ACID 500 MG TAB PO SCH ×2 (13:19→17:46)
[2021-01-03] MEDS: ENOXAPARIN SOD INJ 40 MG/0.4 ML SYR SC SCH ×2 (13:19→22:06)
[2021-01-03] MEDS: DOCUSATE SODIUM LIQD 100 MG/10 ML UDC NG SCH ×2 (13:19→17:46)
[2021-01-03] MEDS: ZINC SULFATE 50 MG CAP PO SCH (13:19)
[2021-01-03] MEDS: FINASTERIDE 5 MG TAB PO SCH (21:00)
[2021-01-03] MEDS: LATANOPROST(OPTH) 2.5 ML BTL OD SCH (21:00)
[2021-01-04] VITALS (21 sets, daily range): BP systolic 119–159; BP diastolic 48–78
[2021-01-04 07:45] LABS: BASOPHILS % 0.1 % (0.0-1.0); EOSINOPHILS % 0.4 % (0.0-6.0); HEMATOCRIT 37.6 % (38.2-49.6); HEMOGLOBIN 11.9 g/dL (14.0-18.0); LYMPHOCYTES # (AUTO) 0.5 (1.0-3.2); LYMPHOCYTES % 5.6 % (18.0-39.1); MEAN CORPUSCULAR HEMOGLOBIN 29.7 pg (28-32); MEAN CORPUSCULAR HGB CONC 31.6 g/dL (31-35); MEAN CORPUSCULAR VOLUME 93.8 fL (81-99); MONOCYTES # (AUTO) 0.4 (0.2-0.8); MONOCYTES % 4.5 % (4.4-11.3); NEUTROPHILS # (AUTO) 7.7 (2.1-6.9); NEUTROPHILS % 86.9 % (38.7-80.0); PLATELET COUNT 210 x10e3/uL (140-360); RED BLOOD COUNT 4.01 x10e6/uL (4.3-5.7); RED CELL DISTRIBUTION WIDTH 14.6 % (11.7-14.4)
[2021-01-04] MEDS: DOCUSATE SODIUM LIQD 100 MG/10 ML UDC NG SCH ×2 (07:57→17:01)
[2021-01-04] MEDS: TIMOLOL MALEATE 0.5% OPTH DRP 5 ML BTL OU SCH ×2 (07:57→17:01)
[2021-01-04] MEDS: SILODOSIN 8 MG PO SCH (07:58)
[2021-01-04] MEDS: ENOXAPARIN SOD INJ 40 MG/0.4 ML SYR SC SCH ×2 (08:00→21:35)
[2021-01-04] MEDS: ASCORBIC ACID 500 MG TAB PO SCH ×2 (08:00→17:01)
[2021-01-04] MEDS: ZINC SULFATE 50 MG CAP PO SCH (08:00)
[2021-01-04] MEDS: OXYBUTYNIN CHLORIDE 5 MG TAB PO SCH (08:00)
[2021-01-04 08:04] LABS: ALBUMIN 1.9 g/dL (3.5-5.0); ALBUMIN/GLOBULIN RATIO 0.6 (0.8-2.0); ANION GAP 11.3 mmol/L (8-16); CREATININE, SERUM 0.7 mg/dL (0.72-1.25); POTASSIUM 4.3 mmol/L (3.5-5.1)
[2021-01-04 09:58] LABS: ABG HCO3 32 mmol/L (22-26); ABG PCO2 46 mmHg (35-45); ABG PH 7.45 (7.35-7.45); ABG PO2 83 mmHg (80-105); ABG TCO2 33
[2021-01-04] MEDS: MIDAZOLAM HCL 5MG/ML 10ML VIAL 100 ML IV PRN (10:08)
[2021-01-04] MEDS: LATANOPROST(OPTH) 2.5 ML BTL OD SCH (21:00)
[2021-01-04] MEDS: FINASTERIDE 5 MG TAB PO SCH (21:00)
[2021-01-05] VITALS (24 sets, daily range): BP systolic 116–161; BP diastolic 48–107
[2021-01-05 06:02] LABS: BASOPHILS % 0.2 % (0.0-1.0); EOSINOPHILS % 2.4 % (0.0-6.0); HEMATOCRIT 34.3 % (38.2-49.6); LYMPHOCYTES % 4.6 % (18.0-39.1); MEAN CORPUSCULAR HEMOGLOBIN 29.6 pg (28-32); MEAN CORPUSCULAR HGB CONC 32.1 g/dL (31-35); MEAN CORPUSCULAR VOLUME 92.5 fL (81-99); MONOCYTES % 3.4 % (4.4-11.3); NEUTROPHILS % 85.1 % (38.7-80.0); PLATELET COUNT 199 x10e3/uL (140-360); RED BLOOD COUNT 3.71 x10e6/uL (4.3-5.7); RED CELL DISTRIBUTION WIDTH 14.5 % (11.7-14.4)
[2021-01-05 06:03] LABS: EOSINOPHILS # (AUTO) 0.3 (0.0-0.4); LYMPHOCYTES # (AUTO) 0.5 (1.0-3.2); MONOCYTES # (AUTO) 0.4 (0.2-0.8)
[2021-01-05 06:29] LABS: ALBUMIN 1.8 g/dL (3.5-5.0); ALBUMIN/GLOBULIN RATIO 0.7 (0.8-2.0); ANION GAP 12.1 mmol/L (8-16); CALCIUM 7.9 mg/dL (8.4-10.2); CREATININE, SERUM 0.6 mg/dL (0.72-1.25); POTASSIUM 4.1 mmol/L (3.5-5.1)
[2021-01-05] MEDS: MIDAZOLAM HCL 5MG/ML 10ML VIAL 100 ML IV PRN ×3 (07:43→22:13)
[2021-01-05] MEDS: FENTANYL 2000MCG/NS 250 250 ML IV PRN ×3 (07:45→23:58)
[2021-01-05] MEDS: SILODOSIN 8 MG PO SCH (08:16)
[2021-01-05] MEDS: TIMOLOL MALEATE 0.5% OPTH DRP 5 ML BTL OU SCH ×2 (08:17→16:22)
[2021-01-05] MEDS: OXYBUTYNIN CHLORIDE 5 MG TAB PO SCH (08:17)
[2021-01-05] MEDS: ASCORBIC ACID 500 MG TAB PO SCH ×2 (08:48→16:22)
[2021-01-05] MEDS: LACTULOSE SYRUP 20 GM/30 ML UDC PO PRN (08:48)
[2021-01-05] MEDS: ENOXAPARIN SOD INJ 40 MG/0.4 ML SYR SC SCH ×2 (08:48→22:10)
[2021-01-05] MEDS: DOCUSATE SODIUM LIQD 100 MG/10 ML UDC NG SCH ×2 (08:48→16:02)
[2021-01-05] MEDS: ZINC SULFATE 50 MG CAP PO SCH (08:48)
[2021-01-05 09:55] LABS: ABG HCO3 31 mmol/L (22-26); ABG PCO2 45 mmHg (35-45); ABG PH 7.45 (7.35-7.45); ABG PO2 114 mmHg (80-105); ABG TCO2 32
[2021-01-05] MEDS ORDERED: FUROSEMIDE INJ 10 MG/ML 4 ML VIAL IV ONE (11:15)
[2021-01-05] MEDS: ALBUMIN 25% 25GM 100ML 100 ML IV SCH ×2 (11:36→22:10)
[2021-01-05] MEDS ORDERED: ALBUMIN 25% 25GM 100ML 0.25 GM/ML BTL IV SCH (12:00)
[2021-01-05 14:18] LABS: ABG HCO3 29 mmol/L (22-26); ABG PCO2 43 mmHg (35-45); ABG PH 7.43 (7.35-7.45); ABG PO2 62 mmHg (80-105); ABG TCO2 30
[2021-01-05] MEDS: LATANOPROST(OPTH) 2.5 ML BTL OD SCH (20:21)
[2021-01-05] MEDS: FINASTERIDE 5 MG TAB PO SCH (22:53)
[2021-01-06] VITALS (24 sets, daily range): BP systolic 124–175; BP diastolic 52–72
[2021-01-06] MEDS: MIDAZOLAM HCL 5MG/ML 10ML VIAL 100 ML IV PRN ×4 (03:35→23:38)
[2021-01-06] MEDS: ALBUMIN 25% 25GM 100ML 100 ML IV SCH (06:08)
[2021-01-06 06:57] LABS: BASOPHILS % 0.1 % (0.0-1.0); EOSINOPHILS # (AUTO) 0.3 (0.0-0.4); EOSINOPHILS % 2.7 % (0.0-6.0); HEMATOCRIT 29.6 % (38.2-49.6); HEMOGLOBIN 9.9 g/dL (14.0-18.0); LYMPHOCYTES # (AUTO) 0.5 (1.0-3.2); LYMPHOCYTES % 4.3 % (18.0-39.1); MEAN CORPUSCULAR HEMOGLOBIN 30.9 pg (28-32); MEAN CORPUSCULAR HGB CONC 33.4 g/dL (31-35); MEAN CORPUSCULAR VOLUME 92.5 fL (81-99); MONOCYTES # (AUTO) 0.3 (0.2-0.8); NEUTROPHILS # (AUTO) 9.4 (2.1-6.9); NEUTROPHILS % 85.9 % (38.7-80.0); PLATELET COUNT 176 x10e3/uL (140-360); RED CELL DISTRIBUTION WIDTH 14.7 % (11.7-14.4)
[2021-01-06] MEDS: FENTANYL 2000MCG/NS 250 250 ML IV PRN ×3 (07:05→20:32)
[2021-01-06 07:13] LABS: ALBUMIN 2.4 g/dL (3.5-5.0); ANION GAP 13.6 mmol/L (8-16); CALCIUM 8.2 mg/dL (8.4-10.2); CREATININE, SERUM 0.61 mg/dL (0.72-1.25); POTASSIUM 3.6 mmol/L (3.5-5.1)
[2021-01-06] MEDS ORDERED: POTASSIUM CHLORIDE 20MEQ/100ML 200 ML IV ONE ×2 (08:30→11:30)
[2021-01-06] MEDS ORDERED: CITRATE OF MAGNESIA 300ML BOTTLE PO NR (08:30)
[2021-01-06] MEDS ORDERED: FUROSEMIDE INJ 10 MG/ML 4 ML VIAL IV NR (08:30)
[2021-01-06] MEDS: ASCORBIC ACID 500 MG TAB PO SCH ×2 (09:00→17:16)
[2021-01-06] MEDS: OXYBUTYNIN CHLORIDE 5 MG TAB PO SCH (09:00)
[2021-01-06] MEDS: SILODOSIN 8 MG PO SCH (09:00)
[2021-01-06] MEDS: TIMOLOL MALEATE 0.5% OPTH DRP 5 ML BTL OU SCH ×2 (09:00→17:00)
[2021-01-06] MEDS: DOCUSATE SODIUM LIQD 100 MG/10 ML UDC NG SCH ×3 (09:00→17:16)
[2021-01-06] MEDS: ENOXAPARIN SOD INJ 40 MG/0.4 ML SYR SC SCH ×2 (09:00→20:47)
[2021-01-06 09:47] LABS: ABG HCO3 30 mmol/L (22-26); ABG PCO2 41 mmHg (35-45); ABG PH 7.47 (7.35-7.45); ABG PO2 69 mmHg (80-105); ABG TCO2 31
[2021-01-06] MEDS: ZINC SULFATE 50 MG CAP PO SCH (11:19)
[2021-01-06] MEDS ORDERED: FUROSEMIDE INJ 10 MG/ML 4 ML VIAL ONE (11:30)
[2021-01-06] MEDS: LACTULOSE SYRUP 20 GM/30 ML UDC PO PRN (15:02)
[2021-01-06 15:48] LABS: ABG HCO3 31 mmol/L (22-26); ABG PCO2 43 mmHg (35-45); ABG PH 7.47 (7.35-7.45); ABG PO2 61 mmHg (80-105); ABG TCO2 33
[2021-01-06] MEDS: LATANOPROST(OPTH) 2.5 ML BTL OD SCH (20:47)
[2021-01-06] MEDS: FINASTERIDE 5 MG TAB PO SCH (22:21)
[2021-01-06] MEDS: ACETAMINOPHEN 325 MG TAB PO PRN (22:22)
[2021-01-07] VITALS (23 sets, daily range): BP systolic 91–184; BP diastolic 47–100
[2021-01-07] MEDS: FENTANYL 2000MCG/NS 250 250 ML IV PRN ×3 (03:56→17:15)
[2021-01-07] MEDS: MIDAZOLAM HCL 5MG/ML 10ML VIAL 100 ML IV PRN ×4 (04:51→21:26)
[2021-01-07 06:10] LABS: BASOPHILS % 0.1 % (0.0-1.0); EOSINOPHILS # (AUTO) 0.4 (0.0-0.4); EOSINOPHILS % 3.5 % (0.0-6.0); HEMATOCRIT 30.1 % (38.2-49.6); HEMOGLOBIN 9.6 g/dL (14.0-18.0); LYMPHOCYTES # (AUTO) 0.5 (1.0-3.2); LYMPHOCYTES % 4.1 % (18.0-39.1); MEAN CORPUSCULAR HEMOGLOBIN 30.3 pg (28-32); MEAN CORPUSCULAR HGB CONC 31.9 g/dL (31-35); MONOCYTES # (AUTO) 0.6 (0.2-0.8); MONOCYTES % 4.9 % (4.4-11.3); NEUTROPHILS # (AUTO) 9.6 (2.1-6.9); NEUTROPHILS % 82.8 % (38.7-80.0); PLATELET COUNT 207 x10e3/uL (140-360); RED BLOOD COUNT 3.17 x10e6/uL (4.3-5.7); RED CELL DISTRIBUTION WIDTH 14.8 % (11.7-14.4)
[2021-01-07 06:41] LABS: ALBUMIN 2.2 g/dL (3.5-5.0); CALCIUM 7.8 mg/dL (8.4-10.2); CREATININE, SERUM 0.67 mg/dL (0.72-1.25)
[2021-01-07 07:41] LABS: LYMPHOCYTES % (MANUAL) 5 % (19-48); MONOCYTES % (MANUAL) 3 % (3.4-9.0); MYELOCYTES % (MANUAL) 2 % (0-0); NEUTROPHILS % (MANUAL) 90 % (40-74); PLATELET ESTIMATE ADEQUATE; PLATELET MORPHOLOGY COMMENT NORMAL; RBC MORPHOLOGY COMMENT NORMAL
[2021-01-07 08:25] LABS: ABG HCO3 30 mmol/L (22-26); ABG PCO2 44 mmHg (35-45); ABG PH 7.45 (7.35-7.45); ABG PO2 62 mmHg (80-105)
[2021-01-07 08:26] LABS: ABG TCO2 32
[2021-01-07] MEDS: ASCORBIC ACID 500 MG TAB PO SCH ×2 (09:30→16:55)
[2021-01-07] MEDS: ZINC SULFATE 50 MG CAP PO SCH (09:30)
[2021-01-07] MEDS: ENOXAPARIN SOD INJ 40 MG/0.4 ML SYR SC SCH ×2 (09:30→22:03)
[2021-01-07] MEDS: DOCUSATE SODIUM LIQD 100 MG/10 ML UDC NG SCH ×2 (09:30→16:55)
[2021-01-07] MEDS: PIPERACILLIN/TAZOBACTAM 3.375 GM in SODIUM CHLORIDE 0.9% 50ML 50 ML IV SCH ×4 (12:57→23:21)
[2021-01-07] MEDS: FINASTERIDE 5 MG TAB PO SCH (22:29)
[2021-01-08] VITALS (28 sets, daily range): BP systolic 98–185; BP diastolic 35–72
[2021-01-08] MEDS: MIDAZOLAM HCL 5MG/ML 10ML VIAL 100 ML IV PRN ×5 (02:16→21:34)
[2021-01-08 06:04] LABS: BASOPHILS % 0.1 % (0.0-1.0); EOSINOPHILS # (AUTO) 0.4 (0.0-0.4); EOSINOPHILS % 2.6 % (0.0-6.0); HEMATOCRIT 28.7 % (38.2-49.6); HEMOGLOBIN 9.9 g/dL (14.0-18.0); LYMPHOCYTES # (AUTO) 0.7 (1.0-3.2); LYMPHOCYTES % 4.7 % (18.0-39.1); MEAN CORPUSCULAR HEMOGLOBIN 32.7 pg (28-32); MEAN CORPUSCULAR HGB CONC 34.5 g/dL (31-35); MEAN CORPUSCULAR VOLUME 94.7 fL (81-99); MONOCYTES # (AUTO) 0.6 (0.2-0.8); MONOCYTES % 4.2 % (4.4-11.3); NEUTROPHILS # (AUTO) 11.7 (2.1-6.9); NEUTROPHILS % 85.8 % (38.7-80.0); PLATELET COUNT 165 x10e3/uL (140-360); RED BLOOD COUNT 3.03 x10e6/uL (4.3-5.7); RED CELL DISTRIBUTION WIDTH 15.8 % (11.7-14.4)
[2021-01-08] MEDS: FENTANYL 2000MCG/NS 250 250 ML IV PRN ×2 (07:03→13:06)
[2021-01-08 07:53] LABS: ALBUMIN/GLOBULIN RATIO 0.6 (0.8-2.0); ANION GAP 13.4 mmol/L (8-16); CALCIUM 8.1 mg/dL (8.4-10.2); CREATININE, SERUM 0.69 mg/dL (0.72-1.25); POTASSIUM 4.4 mmol/L (3.5-5.1)
[2021-01-08 08:21] LABS: CLARITY,URINE CLEAR (CLEAR); COLOR,URINE YELLOW (YELLOW); LEUKOCYTE ESTERASE ,URINE NEGATIVE (NEGATIVE); NITRITE,URINE NEGATIVE (NEGATIVE)
[2021-01-08 08:22] LABS: KETONES,URINE NEGATIVE (NEGATIVE); PROTEIN,URINE DIPSTICK TRACE (NEGATIVE); URINE UROBILINOGEN 0.2 mg/dL (0.2 - 1)
[2021-01-08] MEDS: PROPOFOL IV EMULSION 10MG/ML 100 ML IV PRN ×4 (08:30→16:31)
[2021-01-08 08:34] LABS: WBC,URINE (MAN) 0-5 /HPF (0-5)
[2021-01-08 08:35] LABS: RBC,URINE 21-50 /HPF (0-5)
[2021-01-08 08:36] LABS: BACTERIA,URINE MODERATE /HPF
[2021-01-08 09:11] LABS: ABG PCO2 43 mmHg (35-45); ABG PH 7.46 (7.35-7.45)
[2021-01-08 09:12] LABS: ABG HCO3 31 mmol/L (22-26); ABG PO2 50 mmHg (80-105); ABG TCO2 32
[2021-01-08] MEDS: DOCUSATE SODIUM LIQD 100 MG/10 ML UDC NG SCH ×2 (09:33→16:31)
[2021-01-08] MEDS: ZINC SULFATE 50 MG CAP PO SCH (09:33)
[2021-01-08] MEDS: ENOXAPARIN SOD INJ 40 MG/0.4 ML SYR SC SCH ×2 (09:33→20:21)
[2021-01-08] MEDS: ASCORBIC ACID 500 MG TAB PO SCH ×2 (09:33→16:31)
[2021-01-08] MEDS: PIPERACILLIN/TAZOBACTAM 3.375 GM in SODIUM CHLORIDE 0.9% 50ML 50 ML IV SCH ×2 (11:35→18:00)
[2021-01-08] MEDS ORDERED: VECURONIUM BROMIDE FOR INJ 20 MG VIAL IV STA ×2 (12:21→16:19)
[2021-01-08] MEDS ORDERED: WATER STERILE 10 ML VIAL IV ONE (12:30)
[2021-01-08] MEDS: ALBUMIN 25% 25GM 100ML 100 ML IV SCH (16:00)
[2021-01-08] MEDS ORDERED: FUROSEMIDE INJ 10 MG/ML 4 ML VIAL IV SCH (16:00)
[2021-01-08] MEDS ORDERED: ALBUMIN 25% 25GM 100ML 0.25 GM/ML BTL IV SCH (16:00)
[2021-01-08 16:24] LABS: ABG PH 7.12 (7.35-7.45)
[2021-01-08 16:25] LABS: ABG HCO3 35 mmol/L (22-26); ABG PCO2 108 mmHg (35-45); ABG PO2 94 mmHg (80-105); ABG TCO2 38
[2021-01-08] MEDS: ROCURONIUM 1250MG/NS 250 250 ML IV PRN (16:32)
[2021-01-08] MEDS ORDERED: VECURONIUM BROMIDE FOR INJ 20 MG VIAL ONE (16:32)
[2021-01-08] MEDS ORDERED: ROCURONIUM 1250MG/NS 250 250 ML ONE (16:32)
[2021-01-08] MEDS: FINASTERIDE 5 MG TAB PO SCH (20:21)
[2021-01-08 21:30] LABS: ABG PH 7.23 (7.35-7.45)
[2021-01-08 21:31] LABS: ABG HCO3 34 mmol/L (22-26); ABG PCO2 80 mmHg (35-45); ABG PO2 83 mmHg (80-105); ABG TCO2 36
[2021-01-09] VITALS (28 sets, daily range): BP systolic 105–164; BP diastolic 43–57
[2021-01-09] MEDS: MIDAZOLAM HCL 5MG/ML 10ML VIAL 100 ML IV PRN ×5 (02:37→23:58)
[2021-01-09] MEDS: PIPERACILLIN/TAZOBACTAM 3.375 GM in SODIUM CHLORIDE 0.9% 50ML 50 ML IV SCH ×6 (05:20→23:20)
[2021-01-09 06:34] LABS: BASOPHILS % 0.2 % (0.0-1.0); EOSINOPHILS # (AUTO) 0.5 (0.0-0.4); EOSINOPHILS % 3.2 % (0.0-6.0); HEMATOCRIT 29.2 % (38.2-49.6); HEMOGLOBIN 9.8 g/dL (14.0-18.0); LYMPHOCYTES # (AUTO) 0.4 (1.0-3.2); LYMPHOCYTES % 2.2 % (18.0-39.1); MEAN CORPUSCULAR HEMOGLOBIN 32.7 pg (28-32); MEAN CORPUSCULAR HGB CONC 33.6 g/dL (31-35); MEAN CORPUSCULAR VOLUME 97.3 fL (81-99); MONOCYTES # (AUTO) 0.5 (0.2-0.8); MONOCYTES % 2.8 % (4.4-11.3); NEUTROPHILS # (AUTO) 14.3 (2.1-6.9); NEUTROPHILS % 89.5 % (38.7-80.0); PLATELET COUNT 144 x10e3/uL (140-360); RED CELL DISTRIBUTION WIDTH 15.9 % (11.7-14.4)
[2021-01-09 06:59] LABS: ALBUMIN 2.7 g/dL (3.5-5.0); ALBUMIN/GLOBULIN RATIO 1.1 (0.8-2.0); ANION GAP 13.6 mmol/L (8-16); CALCIUM 8.4 mg/dL (8.4-10.2); CREATININE, SERUM 0.69 mg/dL (0.72-1.25); POTASSIUM 3.6 mmol/L (3.5-5.1)
[2021-01-09] MEDS: DOCUSATE SODIUM LIQD 100 MG/10 ML UDC NG SCH ×2 (08:00→09:35)
[2021-01-09] MEDS: FENTANYL 2000MCG/NS 250 250 ML IV PRN ×3 (08:41→23:37)
[2021-01-09] MEDS ORDERED: BISACODYL 10 MG SUPP PR PRN (09:00)
[2021-01-09 09:29] LABS: ABG HCO3 35 mmol/L (22-26); ABG PCO2 64 mmHg (35-45); ABG PH 7.34 (7.35-7.45); ABG PO2 73 mmHg (80-105); ABG TCO2 37
[2021-01-09] MEDS: ENOXAPARIN SOD INJ 40 MG/0.4 ML SYR SC SCH ×2 (09:35→20:55)
[2021-01-09] MEDS: ZINC SULFATE 50 MG CAP PO SCH (09:35)
[2021-01-09] MEDS: ASCORBIC ACID 500 MG TAB PO SCH ×2 (09:35→17:06)
[2021-01-09] MEDS ORDERED: ACETAZOLAMIDE SODIUM 500 MG/VIAL IV ONE (09:45)
[2021-01-09] MEDS: ALBUMIN 25% 25GM 100ML 100 ML IV SCH ×2 (11:10)
[2021-01-09] MEDS: FLUCONAZOLE 200 MG/100 ML 100 ML IV SCH (11:10)
[2021-01-09 14:17] LABS: ABG PH 7.25 (7.35-7.45)
[2021-01-09 14:18] LABS: ABG HCO3 34 mmol/L (22-26); ABG PCO2 78 mmHg (35-45); ABG PO2 74 mmHg (80-105); ABG TCO2 36
[2021-01-09] MEDS: PROPOFOL IV EMULSION 10MG/ML 100 ML IV PRN ×2 (15:00→22:12)
[2021-01-09] MEDS: ROCURONIUM 1250MG/NS 250 250 ML IV PRN (19:58)
[2021-01-09] MEDS: FINASTERIDE 5 MG TAB PO SCH (20:55)
[2021-01-10] VITALS (27 sets, daily range): BP systolic 97–136; BP diastolic 42–51
[2021-01-10] MEDS: PROPOFOL IV EMULSION 10MG/ML 100 ML IV PRN ×5 (04:21→21:00)
[2021-01-10] MEDS: MIDAZOLAM HCL 5MG/ML 10ML VIAL 100 ML IV PRN ×5 (05:07→20:15)
[2021-01-10] MEDS: PIPERACILLIN/TAZOBACTAM 3.375 GM in SODIUM CHLORIDE 0.9% 50ML 50 ML IV SCH ×4 (05:17→23:29)
[2021-01-10 05:45] LABS: BASOPHILS % 0.1 % (0.0-1.0); EOSINOPHILS # (AUTO) 0.7 (0.0-0.4); EOSINOPHILS % 5.1 % (0.0-6.0); HEMATOCRIT 32.2 % (38.2-49.6); HEMOGLOBIN 9.6 g/dL (14.0-18.0); LYMPHOCYTES # (AUTO) 0.7 (1.0-3.2); LYMPHOCYTES % 5.1 % (18.0-39.1); MEAN CORPUSCULAR HEMOGLOBIN 30.4 pg (28-32); MEAN CORPUSCULAR HGB CONC 29.8 g/dL (31-35); MEAN CORPUSCULAR VOLUME 101.9 fL (81-99); MONOCYTES # (AUTO) 0.6 (0.2-0.8); MONOCYTES % 4.7 % (4.4-11.3); NEUTROPHILS # (AUTO) 11.2 (2.1-6.9); NEUTROPHILS % 83.6 % (38.7-80.0); PLATELET COUNT 157 x10e3/uL (140-360); RED BLOOD COUNT 3.16 x10e6/uL (4.3-5.7); RED CELL DISTRIBUTION WIDTH 15.3 % (11.7-14.4)
[2021-01-10 06:11] LABS: ALBUMIN 2.5 g/dL (3.5-5.0); ANION GAP 12.7 mmol/L (8-16); CALCIUM 8.2 mg/dL (8.4-10.2); CREATININE, SERUM 0.76 mg/dL (0.72-1.25); POTASSIUM 3.7 mmol/L (3.5-5.1)
[2021-01-10] MEDS: FENTANYL 2000MCG/NS 250 250 ML IV PRN ×4 (06:45→20:17)
[2021-01-10 08:00] LABS: EOSINOPHILS % (MANUAL) 1 % (0-7); LYMPHOCYTES % (MANUAL) 1 % (19-48); MONOCYTES % (MANUAL) 3 % (3.4-9.0); NEUTROPHILS % (MANUAL) 93 % (40-74); PLATELET ESTIMATE ADEQUATE; PLATELET MORPHOLOGY COMMENT NORMAL; RBC MORPHOLOGY COMMENT NORMAL
[2021-01-10 09:10] LABS: ABG PH 7.21 (7.35-7.45)
[2021-01-10 09:11] LABS: ABG HCO3 35 mmol/L (22-26); ABG PCO2 87 mmHg (35-45); ABG PO2 64 mmHg (80-105); ABG TCO2 37
[2021-01-10] MEDS: ZINC SULFATE 50 MG CAP PO SCH (11:32)
[2021-01-10] MEDS: DOCUSATE SODIUM LIQD 100 MG/10 ML UDC NG SCH ×2 (11:32→17:18)
[2021-01-10] MEDS: FLUCONAZOLE 200 MG/100 ML 100 ML IV SCH (11:32)
[2021-01-10] MEDS: ASCORBIC ACID 500 MG TAB PO SCH ×2 (11:32→17:18)
[2021-01-10] MEDS: LACTULOSE SYRUP 20 GM/30 ML UDC PO PRN (11:33)
[2021-01-10] MEDS: ENOXAPARIN SOD INJ 40 MG/0.4 ML SYR SC SCH (20:57)
[2021-01-10] MEDS: FINASTERIDE 5 MG TAB PO SCH (21:41)
[2021-01-11] VITALS (29 sets, daily range): BP systolic 82–132; BP diastolic 39–64
[2021-01-11] MEDS: PROPOFOL IV EMULSION 10MG/ML 100 ML IV PRN ×2 (01:27→08:00)
[2021-01-11] MEDS: MIDAZOLAM HCL 5MG/ML 10ML VIAL 100 ML IV PRN ×3 (01:47→23:46)
[2021-01-11] MEDS: ROCURONIUM 1250MG/NS 250 250 ML IV PRN (02:19)
[2021-01-11] MEDS: FENTANYL 2000MCG/NS 250 250 ML IV PRN ×3 (03:30→23:46)
[2021-01-11] MEDS: PIPERACILLIN/TAZOBACTAM 3.375 GM in SODIUM CHLORIDE 0.9% 50ML 50 ML IV SCH ×4 (05:41→23:45)
[2021-01-11 06:03] LABS: BASOPHILS # (AUTO) 0.1 (0.0-0.1); BASOPHILS % 0.4 % (0.0-1.0); EOSINOPHILS # (AUTO) 0.5 (0.0-0.4); EOSINOPHILS % 3.7 % (0.0-6.0); HEMATOCRIT 33.7 % (38.2-49.6); HEMOGLOBIN 9.8 g/dL (14.0-18.0); LYMPHOCYTES # (AUTO) 0.8 (1.0-3.2); LYMPHOCYTES % 6.1 % (18.0-39.1); MEAN CORPUSCULAR HEMOGLOBIN 29.7 pg (28-32); MEAN CORPUSCULAR HGB CONC 29.1 g/dL (31-35); MEAN CORPUSCULAR VOLUME 102.1 fL (81-99); MONOCYTES # (AUTO) 0.7 (0.2-0.8); MONOCYTES % 5.3 % (4.4-11.3); NEUTROPHILS # (AUTO) 10.4 (2.1-6.9); NEUTROPHILS % 83.1 % (38.7-80.0); PLATELET COUNT 160 x10e3/uL (140-360)
[2021-01-11 06:13] LABS: ALBUMIN 2.1 g/dL (3.5-5.0); ALBUMIN/GLOBULIN RATIO 0.7 (0.8-2.0); ANION GAP 13.1 mmol/L (8-16); CALCIUM 8.3 mg/dL (8.4-10.2); CREATININE, SERUM 0.78 mg/dL (0.72-1.25); POTASSIUM 4.1 mmol/L (3.5-5.1)
[2021-01-11] MEDS ORDERED: VECURONIUM BROMIDE FOR INJ 20 MG VIAL ONE (08:37)
[2021-01-11] MEDS: ALBUMIN 25% 25GM 100ML 0.25 GM/ML BTL IV SCH ×3 (08:47→20:59)
[2021-01-11] MEDS: ENOXAPARIN SOD INJ 40 MG/0.4 ML SYR SC SCH ×2 (09:00→20:59)
[2021-01-11] MEDS: DOCUSATE SODIUM LIQD 100 MG/10 ML UDC NG SCH ×2 (09:00→16:33)
[2021-01-11] MEDS: ASCORBIC ACID 500 MG TAB PO SCH ×2 (09:00→16:33)
[2021-01-11] MEDS: ZINC SULFATE 50 MG CAP PO SCH (09:00)
[2021-01-11] MEDS: FUROSEMIDE INJ 10 MG/ML 4 ML VIAL IV SCH ×2 (09:00→20:59)
[2021-01-11 09:05] LABS: ABG HCO3 36 mmol/L (22-26); ABG PCO2 130 mmHg (35-45); ABG PH 7.05 (7.35-7.45); ABG PO2 46 mmHg (80-105); ABG TCO2 40
[2021-01-11] MEDS: FLUCONAZOLE 200 MG/100 ML 100 ML IV SCH (10:00)
[2021-01-11] MEDS: NOREPINEPHRINE 8 MG/D5W 250 ML 250 ML IV SCH ×2 (16:33→23:47)
[2021-01-11] MEDS: FINASTERIDE 5 MG TAB PO SCH (20:59)
[2021-01-11] MEDS: LACTULOSE SYRUP 20 GM/30 ML UDC PO PRN (22:42)
[2021-01-12] VITALS (27 sets, daily range): BP systolic 89–122; BP diastolic 42–83
[2021-01-12] MEDS: ROCURONIUM 1250MG/NS 250 250 ML IV PRN ×2 (01:07→18:00)
[2021-01-12] MEDS: NOREPINEPHRINE 8 MG/D5W 250 ML 250 ML IV SCH (01:08)
[2021-01-12] MEDS: PIPERACILLIN/TAZOBACTAM 3.375 GM in SODIUM CHLORIDE 0.9% 50ML 50 ML IV SCH ×2 (05:35→12:00)
[2021-01-12] MEDS: FENTANYL 2000MCG/NS 250 250 ML IV PRN ×3 (05:56→20:41)
[2021-01-12] MEDS: MIDAZOLAM HCL 5MG/ML 10ML VIAL 100 ML IV PRN ×5 (05:57→21:11)
[2021-01-12 06:24] LABS: BASOPHILS % 0.3 % (0.0-1.0); EOSINOPHILS % 0.3 % (0.0-6.0); HEMATOCRIT 34.8 % (38.2-49.6); HEMOGLOBIN 9.7 g/dL (14.0-18.0); LYMPHOCYTES # (AUTO) 0.6 (1.0-3.2); LYMPHOCYTES % 4.4 % (18.0-39.1); MEAN CORPUSCULAR HEMOGLOBIN 29.6 pg (28-32); MEAN CORPUSCULAR HGB CONC 27.9 g/dL (31-35); MEAN CORPUSCULAR VOLUME 106.1 fL (81-99); MONOCYTES # (AUTO) 0.6 (0.2-0.8); MONOCYTES % 4.2 % (4.4-11.3); NEUTROPHILS # (AUTO) 12.3 (2.1-6.9); NEUTROPHILS % 87.9 % (38.7-80.0); PLATELET COUNT 159 x10e3/uL (140-360); RED BLOOD COUNT 3.28 x10e6/uL (4.3-5.7); RED CELL DISTRIBUTION WIDTH 14.2 % (11.7-14.4)
[2021-01-12 06:56] LABS: ANION GAP 13.5 mmol/L (8-16); CALCIUM 8.5 mg/dL (8.4-10.2); CREATININE, SERUM 1.38 mg/dL (0.72-1.25); POTASSIUM 4.5 mmol/L (3.5-5.1)
[2021-01-12 07:59] LABS: ABG HCO3 33 mmol/L (22-26); ABG PCO2 122 mmHg (35-45); ABG PH 7.04 (7.35-7.45); ABG PO2 63 mmHg (80-105); ABG TCO2 36
[2021-01-12] MEDS: PROPOFOL IV EMULSION 10MG/ML 100 ML IV PRN ×3 (08:00→18:00)
[2021-01-12] MEDS: ENOXAPARIN SOD INJ 40 MG/0.4 ML SYR SC SCH (09:00)
[2021-01-12] MEDS: ZINC SULFATE 50 MG CAP PO SCH (09:00)
[2021-01-12] MEDS: FUROSEMIDE INJ 10 MG/ML 4 ML VIAL IV SCH (09:00)
[2021-01-12] MEDS: ASCORBIC ACID 500 MG TAB PO SCH ×2 (09:00→17:00)
[2021-01-12] MEDS: DOCUSATE SODIUM LIQD 100 MG/10 ML UDC NG SCH ×2 (09:00→17:00)
[2021-01-12] MEDS: FLUCONAZOLE 200 MG/100 ML 100 ML IV SCH (10:00)
[2021-01-12 16:12] LABS: ABG HCO3 33 mmol/L (22-26); ABG PCO2 121 mmHg (35-45); ABG PH 7.05 (7.35-7.45); ABG PO2 73 mmHg (80-105); ABG TCO2 37
[2021-01-12] MEDS ORDERED: SODIUM BICARBONATE 8.4% INJ 50 ML SYR IV ONE (16:30)
[2021-01-12] MEDS: FINASTERIDE 5 MG TAB PO SCH (21:05)
[2021-01-13] VITALS (30 sets, daily range): BP systolic 87–137; BP diastolic 42–58
[2021-01-13] MEDS: PROPOFOL IV EMULSION 10MG/ML 100 ML IV PRN ×5 (00:27→21:25)
[2021-01-13] MEDS: MIDAZOLAM HCL 5MG/ML 10ML VIAL 100 ML IV PRN ×5 (02:13→22:51)
[2021-01-13] MEDS: NOREPINEPHRINE 8 MG/D5W 250 ML 250 ML IV SCH ×6 (06:47→21:42)
[2021-01-13 06:50] LABS: BASOPHILS # (AUTO) 0.1 (0.0-0.1); BASOPHILS % 0.5 % (0.0-1.0); EOSINOPHILS # (AUTO) 0.1 (0.0-0.4); EOSINOPHILS % 0.6 % (0.0-6.0); HEMATOCRIT 32.7 % (38.2-49.6); HEMOGLOBIN 9.4 g/dL (14.0-18.0); LYMPHOCYTES # (AUTO) 0.7 (1.0-3.2); LYMPHOCYTES % 4.7 % (18.0-39.1); MEAN CORPUSCULAR HEMOGLOBIN 29.6 pg (28-32); MEAN CORPUSCULAR HGB CONC 28.7 g/dL (31-35); MEAN CORPUSCULAR VOLUME 102.8 fL (81-99); MONOCYTES # (AUTO) 0.8 (0.2-0.8); MONOCYTES % 5.6 % (4.4-11.3); NEUTROPHILS # (AUTO) 11.9 (2.1-6.9); NEUTROPHILS % 86.2 % (38.7-80.0); PLATELET COUNT 151 x10e3/uL (140-360); RED BLOOD COUNT 3.18 x10e6/uL (4.3-5.7); RED CELL DISTRIBUTION WIDTH 14.4 % (11.7-14.4)
[2021-01-13 07:13] LABS: ALBUMIN 2.5 g/dL (3.5-5.0); ALBUMIN/GLOBULIN RATIO 0.8 (0.8-2.0); ANION GAP 14.4 mmol/L (8-16); CREATININE, SERUM 1.69 mg/dL (0.72-1.25); POTASSIUM 4.4 mmol/L (3.5-5.1)
[2021-01-13 08:12] LABS: ABG HCO3 34 mmol/L (22-26); ABG PCO2 93 mmHg (35-45); ABG PH 7.17 (7.35-7.45); ABG PO2 83 mmHg (80-105); ABG TCO2 36
[2021-01-13] MEDS ORDERED: ENOXAPARIN SOD INJ 40 MG/0.4 ML SYR SC SCH (09:00)
[2021-01-13] MEDS: ASCORBIC ACID 500 MG TAB PO SCH ×2 (09:35→17:52)
[2021-01-13] MEDS: ZINC SULFATE 50 MG CAP PO SCH (09:35)
[2021-01-13] MEDS: DOCUSATE SODIUM LIQD 100 MG/10 ML UDC NG SCH ×2 (09:35→17:52)
[2021-01-13] MEDS: FUROSEMIDE INJ 10 MG/ML 4 ML VIAL IV SCH (09:35)
[2021-01-13] MEDS: FENTANYL 2000MCG/NS 250 250 ML IV PRN ×2 (11:02→16:27)
[2021-01-13] MEDS: ROCURONIUM 1250MG/NS 250 250 ML IV PRN (14:36)
[2021-01-13] MEDS: HEPARIN SOD (PORCINE) 5,000 UNIT/ML VIAL SC SCH (21:11)
[2021-01-13] MEDS: METOCLOPRAMIDE HCL 10 MG/2ML VIAL IV SCH (21:11)
[2021-01-13] MEDS: FINASTERIDE 5 MG TAB PO SCH (21:11)
[2021-01-14] VITALS (25 sets, daily range): BP systolic 91–139; BP diastolic 41–63
[2021-01-14] MEDS: FENTANYL 2000MCG/NS 250 250 ML IV PRN (00:02)
[2021-01-14] MEDS: PROPOFOL IV EMULSION 10MG/ML 100 ML IV PRN ×3 (03:00→14:57)
[2021-01-14] MEDS: MIDAZOLAM HCL 5MG/ML 10ML VIAL 100 ML IV PRN (03:59)
[2021-01-14] MEDS: NOREPINEPHRINE 8 MG/D5W 250 ML 250 ML IV SCH (04:03)
[2021-01-14] MEDS: METOCLOPRAMIDE HCL 10 MG/2ML VIAL IV SCH ×2 (05:22→14:00)
[2021-01-14 05:52] LABS: BASOPHILS # (AUTO) 0.1 (0.0-0.1); BASOPHILS % 0.5 % (0.0-1.0); EOSINOPHILS # (AUTO) 0.1 (0.0-0.4); HEMATOCRIT 32.1 % (38.2-49.6); HEMOGLOBIN 9.1 g/dL (14.0-18.0); LYMPHOCYTES # (AUTO) 0.9 (1.0-3.2); LYMPHOCYTES % 6.5 % (18.0-39.1); MEAN CORPUSCULAR HEMOGLOBIN 29.1 pg (28-32); MEAN CORPUSCULAR HGB CONC 28.3 g/dL (31-35); MEAN CORPUSCULAR VOLUME 102.6 fL (81-99); MONOCYTES # (AUTO) 0.7 (0.2-0.8); MONOCYTES % 4.6 % (4.4-11.3); NEUTROPHILS # (AUTO) 11.8 (2.1-6.9); NEUTROPHILS % 83.2 % (38.7-80.0); PLATELET COUNT 154 x10e3/uL (140-360); RED BLOOD COUNT 3.13 x10e6/uL (4.3-5.7); RED CELL DISTRIBUTION WIDTH 14.6 % (11.7-14.4)
[2021-01-14 06:31] LABS: ALBUMIN 2.2 g/dL (3.5-5.0); ALBUMIN/GLOBULIN RATIO 0.7 (0.8-2.0); ANION GAP 13.4 mmol/L (8-16); CALCIUM 7.9 mg/dL (8.4-10.2); CREATININE, SERUM 1.73 mg/dL (0.72-1.25); POTASSIUM 4.4 mmol/L (3.5-5.1)
[2021-01-14] MEDS: ZINC SULFATE 50 MG CAP PO SCH (08:24)
[2021-01-14] MEDS: ASCORBIC ACID 500 MG TAB PO SCH ×2 (08:24→16:54)
[2021-01-14] MEDS: DOCUSATE SODIUM LIQD 100 MG/10 ML UDC NG SCH ×2 (08:24→16:53)
[2021-01-14] MEDS: FUROSEMIDE INJ 10 MG/ML 4 ML VIAL IV SCH (08:24)
[2021-01-14] MEDS: HEPARIN SOD (PORCINE) 5,000 UNIT/ML VIAL SC SCH ×2 (08:38→20:26)
[2021-01-14 08:58] LABS: ABG HCO3 32 mmol/L (22-26); ABG PCO2 83 mmHg (35-45); ABG PO2 60 mmHg (80-105); ABG TCO2 35
[2021-01-14] MEDS: ROCURONIUM 1250MG/NS 250 250 ML IV PRN (10:39)
[2021-01-14 12:23] LABS: ABG PH 7.28 (7.35-7.45)
[2021-01-14 12:24] LABS: ABG HCO3 33 mmol/L (22-26); ABG PCO2 72 mmHg (35-45); ABG PO2 66 mmHg (80-105); ABG TCO2 35
[2021-01-14] MEDS: BALSAM PERU/CASTOR OIL 60 GM OINT...G. TP SCH (14:57)
[2021-01-14] MEDS: FUROSEMIDE INJ 100 MG in SODIUM CHLORIDE 0.9% 100 ML 90 ML IV SCH (15:29)
[2021-01-14] MEDS: FINASTERIDE 5 MG TAB PO SCH (20:23)
[2021-01-15] VITALS (24 sets, daily range): BP systolic 104–127; BP diastolic 43–56
[2021-01-15] MEDS: FUROSEMIDE INJ 100 MG in SODIUM CHLORIDE 0.9% 100 ML 90 ML IV SCH ×3 (00:02→17:14)
[2021-01-15] MEDS: METOCLOPRAMIDE HCL 10 MG/2ML VIAL IV SCH ×4 (00:02→22:11)
[2021-01-15 06:05] LABS: BASOPHILS # (AUTO) 0.1 (0.0-0.1); BASOPHILS % 0.4 % (0.0-1.0); EOSINOPHILS # (AUTO) 0.4 (0.0-0.4); HEMATOCRIT 30.1 % (38.2-49.6); HEMOGLOBIN 9.3 g/dL (14.0-18.0); LYMPHOCYTES # (AUTO) 0.9 (1.0-3.2); LYMPHOCYTES % 6.1 % (18.0-39.1); MEAN CORPUSCULAR HEMOGLOBIN 29.7 pg (28-32); MEAN CORPUSCULAR HGB CONC 30.9 g/dL (31-35); MEAN CORPUSCULAR VOLUME 96.2 fL (81-99); MONOCYTES # (AUTO) 0.5 (0.2-0.8); MONOCYTES % 3.5 % (4.4-11.3); NEUTROPHILS # (AUTO) 11.4 (2.1-6.9); NEUTROPHILS % 81.8 % (38.7-80.0); PLATELET COUNT 157 x10e3/uL (140-360); RED BLOOD COUNT 3.13 x10e6/uL (4.3-5.7); RED CELL DISTRIBUTION WIDTH 14.6 % (11.7-14.4)
[2021-01-15 06:32] LABS: ALBUMIN 2.1 g/dL (3.5-5.0); ALBUMIN/GLOBULIN RATIO 0.7 (0.8-2.0); ANION GAP 13.3 mmol/L (8-16); CALCIUM 7.8 mg/dL (8.4-10.2); CREATININE, SERUM 1.43 mg/dL (0.72-1.25); POTASSIUM 3.3 mmol/L (3.5-5.1)
[2021-01-15 08:43] LABS: ABG PH 7.26 (7.35-7.45)
[2021-01-15 08:44] LABS: ABG HCO3 35 mmol/L (22-26); ABG PCO2 79 mmHg (35-45); ABG PO2 68 mmHg (80-105); ABG TCO2 37
[2021-01-15] MEDS: DOCUSATE SODIUM LIQD 100 MG/10 ML UDC NG SCH ×2 (10:22→17:14)
[2021-01-15] MEDS: ASCORBIC ACID 500 MG TAB PO SCH ×2 (10:22→17:14)
[2021-01-15] MEDS: ZINC SULFATE 50 MG CAP PO SCH (10:22)
[2021-01-15] MEDS: HEPARIN SOD (PORCINE) 5,000 UNIT/ML VIAL SC SCH ×2 (10:30→22:12)
[2021-01-15] MEDS: PROPOFOL IV EMULSION 10MG/ML 100 ML IV PRN ×2 (10:30→21:25)
[2021-01-15] MEDS: MIDAZOLAM HCL 5MG/ML 10ML VIAL 100 ML IV PRN ×2 (10:31→20:04)
[2021-01-15] MEDS ORDERED: ALBUMIN 25% 25GM 100ML 0.25 GM/ML BTL IV SCH (11:30)
[2021-01-15] MEDS ORDERED: POTASSIUM CHLORIDE 20MEQ/100ML 200 ML IV ONE (11:30)
[2021-01-15] MEDS ORDERED: ACETAZOLAMIDE SODIUM 500 MG/VIAL IV ONE (12:00)
[2021-01-15] MEDS: ALBUMIN 25% 25GM 100ML 100 ML IV SCH ×2 (12:07→20:42)
[2021-01-15] MEDS: NOREPINEPHRINE 8 MG/D5W 250 ML 250 ML IV SCH (15:30)
[2021-01-15] MEDS: FENTANYL 2000MCG/NS 250 250 ML IV PRN (21:26)
[2021-01-15] MEDS: FINASTERIDE 5 MG TAB PO SCH (22:11)
[2021-01-16] VITALS (24 sets, daily range): BP systolic 97–149; BP diastolic 47–63
[2021-01-16] MEDS: FUROSEMIDE INJ 100 MG in SODIUM CHLORIDE 0.9% 100 ML 90 ML IV SCH ×2 (04:46→14:30)
[2021-01-16] MEDS: ALBUMIN 25% 25GM 100ML 100 ML IV SCH (04:46)
[2021-01-16] MEDS: METOCLOPRAMIDE HCL 10 MG/2ML VIAL IV SCH ×2 (05:38→14:00)
[2021-01-16 06:06] LABS: BASOPHILS # (AUTO) 0.1 (0.0-0.1); BASOPHILS % 0.4 % (0.0-1.0); EOSINOPHILS # (AUTO) 0.3 (0.0-0.4); EOSINOPHILS % 2.5 % (0.0-6.0); HEMOGLOBIN 8.5 g/dL (14.0-18.0); LYMPHOCYTES # (AUTO) 0.6 (1.0-3.2); LYMPHOCYTES % 5.3 % (18.0-39.1); MEAN CORPUSCULAR HEMOGLOBIN 29.6 pg (28-32); MEAN CORPUSCULAR HGB CONC 29.3 g/dL (31-35); MONOCYTES # (AUTO) 0.5 (0.2-0.8); MONOCYTES % 4.6 % (4.4-11.3); NEUTROPHILS # (AUTO) 9.4 (2.1-6.9); NEUTROPHILS % 82.1 % (38.7-80.0); PLATELET COUNT 136 x10e3/uL (140-360); RED BLOOD COUNT 2.87 x10e6/uL (4.3-5.7); RED CELL DISTRIBUTION WIDTH 14.7 % (11.7-14.4)
[2021-01-16 07:00] LABS: ALBUMIN 2.8 g/dL (3.5-5.0); ALBUMIN/GLOBULIN RATIO 0.9 (0.8-2.0); ANION GAP 13.4 mmol/L (8-16); CALCIUM 7.8 mg/dL (8.4-10.2); CREATININE, SERUM 1.31 mg/dL (0.72-1.25); POTASSIUM 3.4 mmol/L (3.5-5.1)
[2021-01-16] MEDS: PROPOFOL IV EMULSION 10MG/ML 100 ML IV PRN (07:54)
[2021-01-16 08:41] LABS: EOSINOPHILS % (MANUAL) 1 % (0-7); LYMPHOCYTES % (MANUAL) 6 % (19-48); MONOCYTES % (MANUAL) 4 % (3.4-9.0); MYELOCYTES % (MANUAL) 3 % (0-0); NEUTROPHILS % (MANUAL) 85 % (40-74); NUCLEATED RED BLOOD CELLS 1; PLATELET ESTIMATE SLIGHTLY DECREASED; PLATELET MORPHOLOGY COMMENT FEW GIANT; RBC MORPHOLOGY COMMENT NORMAL
[2021-01-16] MEDS: ZINC SULFATE 50 MG CAP PO SCH (09:00)
[2021-01-16] MEDS: HEPARIN SOD (PORCINE) 5,000 UNIT/ML VIAL SC SCH (09:00)
[2021-01-16] MEDS: ASCORBIC ACID 500 MG TAB PO SCH ×2 (09:00→16:43)
[2021-01-16] MEDS ORDERED: KCL 20 MEQ PACKET/ ORAL SOLN PO SCH (09:00)
[2021-01-16] MEDS: DOCUSATE SODIUM LIQD 100 MG/10 ML UDC NG SCH ×2 (09:00→16:43)
[2021-01-16] MEDS: BALSAM PERU/CASTOR OIL 60 GM OINT...G. TP SCH (09:00)
[2021-01-16 10:06] LABS: ABG PCO2 81 mmHg (35-45); ABG PH 7.27 (7.35-7.45)
[2021-01-16 10:07] LABS: ABG HCO3 38 mmol/L (22-26); ABG PO2 76 mmHg (80-105); ABG TCO2 40
[2021-01-16] MEDS: NOREPINEPHRINE 8 MG/D5W 250 ML 250 ML IV SCH (15:30)
[2021-01-16] MEDS ORDERED: SODIUM CHLORIDE 0.9% 1000ML 1,000 ML ONE (17:51)
[2021-01-16] MEDS: FENTANYL 2000MCG/NS 250 250 ML IV PRN (18:00)
[2021-01-16] MEDS ORDERED: HEPARIN SOD (PORCINE) 1000 UNIT/ML SDV IV PRN (20:15)
[2021-01-16] MEDS ORDERED: HEPARIN SOD (PORCINE) 1000 UNIT/ML SDV ONE (20:19)
[2021-01-17] VITALS (24 sets, daily range): BP systolic 84–130; BP diastolic 41–56
[2021-01-17] MEDS: FINASTERIDE 5 MG TAB PO SCH ×2 (00:24→22:14)
[2021-01-17] MEDS: HEPARIN SOD (PORCINE) 5,000 UNIT/ML VIAL SC SCH ×3 (00:25→22:16)
[2021-01-17] MEDS: METOCLOPRAMIDE HCL 10 MG/2ML VIAL IV SCH ×4 (00:25→22:14)
[2021-01-17 05:42] LABS: BASOPHILS % 0.5 % (0.0-1.0); EOSINOPHILS # (AUTO) 0.3 (0.0-0.4); EOSINOPHILS % 3.4 % (0.0-6.0); HEMATOCRIT 26.9 % (38.2-49.6); LYMPHOCYTES # (AUTO) 0.7 (1.0-3.2); LYMPHOCYTES % 7.3 % (18.0-39.1); MEAN CORPUSCULAR HEMOGLOBIN 29.4 pg (28-32); MEAN CORPUSCULAR HGB CONC 29.7 g/dL (31-35); MEAN CORPUSCULAR VOLUME 98.9 fL (81-99); MONOCYTES # (AUTO) 0.4 (0.2-0.8); NEUTROPHILS % 78.7 % (38.7-80.0); PLATELET COUNT 123 x10e3/uL (140-360); RED BLOOD COUNT 2.72 x10e6/uL (4.3-5.7); RED CELL DISTRIBUTION WIDTH 14.8 % (11.7-14.4)
[2021-01-17 06:05] LABS: ALBUMIN 2.4 g/dL (3.5-5.0); ALBUMIN/GLOBULIN RATIO 0.8 (0.8-2.0); CALCIUM 7.9 mg/dL (8.4-10.2); CREATININE, SERUM 1.15 mg/dL (0.72-1.25)
[2021-01-17 08:35] LABS: BAND NEUTROPHILS % (MANUAL) 2 %; EOSINOPHILS % (MANUAL) 3 % (0-7); LYMPHOCYTES % (MANUAL) 12 % (19-48); METAMYELOCYTES % (MANUAL) 2 % (0-0); MONOCYTES % (MANUAL) 4 % (3.4-9.0); NEUTROPHILS % (MANUAL) 77 % (40-74)
[2021-01-17 08:36] LABS: PLATELET ESTIMATE ADEQUATE; PLATELET MORPHOLOGY COMMENT NORMAL; RBC MORPHOLOGY COMMENT NORMAL
[2021-01-17 08:37] LABS: ANISOCYTOSIS SLIGHT; HYPOCHROMASIA SLIGHT
[2021-01-17] MEDS ORDERED: SODIUM CHLORIDE 0.9% 1000ML 2,000 ML ONE (08:45)
[2021-01-17] MEDS: FENTANYL 2000MCG/NS 250 250 ML IV PRN (08:53)
[2021-01-17] MEDS: PROPOFOL IV EMULSION 10MG/ML 100 ML IV PRN (08:53)
[2021-01-17] MEDS: MIDAZOLAM HCL 5MG/ML 10ML VIAL 100 ML IV PRN (08:54)
[2021-01-17] MEDS: BALSAM PERU/CASTOR OIL 60 GM OINT...G. TP SCH (09:00)
[2021-01-17] MEDS: DOCUSATE SODIUM LIQD 100 MG/10 ML UDC NG SCH ×2 (09:00→17:00)
[2021-01-17] MEDS: ZINC SULFATE 50 MG CAP PO SCH (09:00)
[2021-01-17] MEDS: ASCORBIC ACID 500 MG TAB PO SCH ×2 (09:00→17:00)
[2021-01-17 09:27] LABS: ABG PH 7.35 (7.35-7.45)
[2021-01-17 09:29] LABS: ABG HCO3 37 mmol/L (22-26); ABG PCO2 68 mmHg (35-45); ABG PO2 54 mmHg (80-105); ABG TCO2 39
[2021-01-17] MEDS ORDERED: POTASSIUM CHLORIDE 20MEQ/100ML 200 ML IV ONE (09:30)
[2021-01-17] MEDS ORDERED: HEPARIN SOD (PORCINE) 1000 UNIT/ML SDV IV PRN (09:45)
[2021-01-17] MEDS ORDERED: SODIUM CHLORIDE 0.9% 250ML 500 ML IV PRN (09:45)
[2021-01-17] MEDS ORDERED: SODIUM CHLORIDE 0.9% 1000ML 2,000 ML IV PRN (09:45)
[2021-01-17] MEDS: NOREPINEPHRINE 8 MG/D5W 250 ML 250 ML IV SCH (15:30)
[2021-01-18] VITALS (20 sets, daily range): BP systolic 105–131; BP diastolic 46–55
[2021-01-18] MEDS: METOCLOPRAMIDE HCL 10 MG/2ML VIAL IV SCH ×3 (05:55→22:09)
[2021-01-18 07:13] LABS: BASOPHILS % 0.3 % (0.0-1.0); EOSINOPHILS # (AUTO) 0.3 (0.0-0.4); EOSINOPHILS % 2.5 % (0.0-6.0); HEMATOCRIT 28.3 % (38.2-49.6); HEMOGLOBIN 8.6 g/dL (14.0-18.0); MEAN CORPUSCULAR HEMOGLOBIN 29.6 pg (28-32); MEAN CORPUSCULAR HGB CONC 30.4 g/dL (31-35); MEAN CORPUSCULAR VOLUME 97.3 fL (81-99); MONOCYTES # (AUTO) 0.7 (0.2-0.8); MONOCYTES % 5.4 % (4.4-11.3); NEUTROPHILS # (AUTO) 10.5 (2.1-6.9); NEUTROPHILS % 78.3 % (38.7-80.0); PLATELET COUNT 157 x10e3/uL (140-360); RED BLOOD COUNT 2.91 x10e6/uL (4.3-5.7); RED CELL DISTRIBUTION WIDTH 15.5 % (11.7-14.4)
[2021-01-18 07:39] LABS: ALBUMIN 2.3 g/dL (3.5-5.0); ALBUMIN/GLOBULIN RATIO 0.7 (0.8-2.0); ANION GAP 15.9 mmol/L (8-16); CALCIUM 8.3 mg/dL (8.4-10.2); CREATININE, SERUM 1.26 mg/dL (0.72-1.25); POTASSIUM 3.9 mmol/L (3.5-5.1)
[2021-01-18 09:02] LABS: ABG HCO3 33 mmol/L (22-26); ABG PCO2 70 mmHg (35-45); ABG PH 7.29 (7.35-7.45); ABG PO2 69 mmHg (80-105); ABG TCO2 35
[2021-01-18] MEDS: FENTANYL 2000MCG/NS 250 250 ML IV PRN (11:00)
[2021-01-18] MEDS ORDERED: PROPOFOL IV EMULSION 100 ML IV ONE (11:08)
[2021-01-18] MEDS: ASCORBIC ACID 500 MG TAB PO SCH ×2 (11:39→19:17)
[2021-01-18] MEDS: ZINC SULFATE 50 MG CAP PO SCH (11:39)
[2021-01-18] MEDS: Vancomycin IV 1.25 GM in SODIUM CHLORIDE 0.9% 250ML 250 ML IV SCH ×2 (11:39→11:40)
[2021-01-18] MEDS: DOCUSATE SODIUM LIQD 100 MG/10 ML UDC NG SCH ×2 (11:39→19:17)
[2021-01-18] MEDS: HEPARIN SOD (PORCINE) 5,000 UNIT/ML VIAL SC SCH ×2 (11:40→22:10)
[2021-01-18] MEDS: BALSAM PERU/CASTOR OIL 60 GM OINT...G. TP SCH (11:40)
[2021-01-18] MEDS: PROPOFOL IV EMULSION 50 ML IV PRN (11:55)
[2021-01-18] MEDS: MIDAZOLAM HCL 5MG/ML 10ML VIAL 100 ML IV PRN (11:58)
[2021-01-18] MEDS: MEROPENEM 500 MG in SODIUM CHLORIDE 0.9% 50ML 50 ML IV SCH ×2 (13:43→22:09)
[2021-01-18 14:25] LABS: BAND NEUTROPHILS % (MANUAL) 3 %; EOSINOPHILS % (MANUAL) 3 % (0-7); LYMPHOCYTES % (MANUAL) 7 % (19-48); MONOCYTES % (MANUAL) 5 % (3.4-9.0); MYELOCYTES % (MANUAL) 4 % (0-0); NEUTROPHILS % (MANUAL) 77 % (40-74); NUCLEATED RED BLOOD CELLS 1
[2021-01-18 14:32] LABS: ANISOCYTOSIS SLIGHT; PLATELET ESTIMATE ADEQUATE; PLATELET MORPHOLOGY COMMENT NORMAL; POLYCHROMASIA FEW; RBC MORPHOLOGY COMMENT ABNORMAL
[2021-01-18 14:33] LABS: HYPOCHROMASIA SLIGHT
[2021-01-18] MEDS: NOREPINEPHRINE 8 MG/D5W 250 ML 250 ML IV SCH (15:30)
[2021-01-18] MEDS: FINASTERIDE 5 MG TAB PO SCH (22:09)
[2021-01-19] VITALS (27 sets, daily range): BP systolic 92–127; BP diastolic 41–76
[2021-01-19] MEDS: MEROPENEM 500 MG in SODIUM CHLORIDE 0.9% 50ML 50 ML IV SCH ×3 (06:19→22:41)
[2021-01-19] MEDS: METOCLOPRAMIDE HCL 10 MG/2ML VIAL IV SCH ×3 (06:19→22:41)
[2021-01-19 06:28] LABS: BASOPHILS % 0.3 % (0.0-1.0); EOSINOPHILS # (AUTO) 0.5 (0.0-0.4); EOSINOPHILS % 4.4 % (0.0-6.0); HEMATOCRIT 29.1 % (38.2-49.6); HEMOGLOBIN 8.8 g/dL (14.0-18.0); LYMPHOCYTES # (AUTO) 0.8 (1.0-3.2); MEAN CORPUSCULAR HEMOGLOBIN 29.6 pg (28-32); MEAN CORPUSCULAR HGB CONC 30.2 g/dL (31-35); MONOCYTES # (AUTO) 0.6 (0.2-0.8); MONOCYTES % 5.4 % (4.4-11.3); NEUTROPHILS # (AUTO) 8.8 (2.1-6.9); NEUTROPHILS % 77.7 % (38.7-80.0); PLATELET COUNT 147 x10e3/uL (140-360); RED BLOOD COUNT 2.97 x10e6/uL (4.3-5.7); RED CELL DISTRIBUTION WIDTH 15.8 % (11.7-14.4)
[2021-01-19 06:56] LABS: ALBUMIN 1.9 g/dL (3.5-5.0); ALBUMIN/GLOBULIN RATIO 0.5 (0.8-2.0); ANION GAP 11.6 mmol/L (8-16); CALCIUM 8.3 mg/dL (8.4-10.2); CREATININE, SERUM 0.87 mg/dL (0.72-1.25); POTASSIUM 3.6 mmol/L (3.5-5.1)
[2021-01-19] MEDS: FENTANYL 2000MCG/NS 250 250 ML IV PRN (08:54)
[2021-01-19] MEDS: Vancomycin IV 1.25 GM in SODIUM CHLORIDE 0.9% 250ML 250 ML IV SCH (08:55)
[2021-01-19] MEDS: ZINC SULFATE 50 MG CAP PO SCH (08:55)
[2021-01-19] MEDS: ASCORBIC ACID 500 MG TAB PO SCH ×2 (08:55→17:30)
[2021-01-19] MEDS: DOCUSATE SODIUM LIQD 100 MG/10 ML UDC NG SCH ×2 (08:55→17:30)
[2021-01-19] MEDS: HEPARIN SOD (PORCINE) 5,000 UNIT/ML VIAL SC SCH ×2 (08:58→22:42)
[2021-01-19] MEDS: BALSAM PERU/CASTOR OIL 60 GM OINT...G. TP SCH (08:59)
[2021-01-19 09:25] LABS: ABG HCO3 36 mmol/L (22-26); ABG PCO2 77 mmHg (35-45); ABG PH 7.27 (7.35-7.45); ABG PO2 66 mmHg (80-105); ABG TCO2 38
[2021-01-19] MEDS: PROPOFOL IV EMULSION 50 ML IV PRN ×2 (12:38→12:39)
[2021-01-19] MEDS: MIDAZOLAM HCL 5MG/ML 10ML VIAL 100 ML IV PRN ×2 (12:56→18:37)
[2021-01-19] MEDS: NOREPINEPHRINE 8 MG/D5W 250 ML 250 ML IV SCH (14:14)
[2021-01-19] MEDS: FENTANYL 2000MCG/NS 250 250 ML IV SCH (15:22)
[2021-01-19] MEDS: PROPOFOL IV EMULSION 10MG/ML 100 ML IV PRN (17:30)
[2021-01-19] MEDS: FINASTERIDE 5 MG TAB PO SCH (22:41)
[2021-01-20] VITALS (31 sets, daily range): BP systolic 94–127; BP diastolic 40–52
[2021-01-20] MEDS: MEROPENEM 500 MG in SODIUM CHLORIDE 0.9% 50ML 50 ML IV SCH ×3 (06:12→21:31)
[2021-01-20] MEDS: METOCLOPRAMIDE HCL 10 MG/2ML VIAL IV SCH ×3 (06:13→21:31)
[2021-01-20 06:21] LABS: BASOPHILS % 0.3 % (0.0-1.0); EOSINOPHILS # (AUTO) 0.7 (0.0-0.4); HEMATOCRIT 28.1 % (38.2-49.6); HEMOGLOBIN 8.2 g/dL (14.0-18.0); LYMPHOCYTES % 8.7 % (18.0-39.1); MEAN CORPUSCULAR HEMOGLOBIN 29.6 pg (28-32); MEAN CORPUSCULAR HGB CONC 29.2 g/dL (31-35); MEAN CORPUSCULAR VOLUME 101.4 fL (81-99); MONOCYTES # (AUTO) 0.9 (0.2-0.8); MONOCYTES % 7.6 % (4.4-11.3); NEUTROPHILS # (AUTO) 8.4 (2.1-6.9); NEUTROPHILS % 70.8 % (38.7-80.0); PLATELET COUNT 135 x10e3/uL (140-360); RED BLOOD COUNT 2.77 x10e6/uL (4.3-5.7); RED CELL DISTRIBUTION WIDTH 16.1 % (11.7-14.4)
[2021-01-20 06:46] LABS: ALBUMIN 1.8 g/dL (3.5-5.0); ALBUMIN/GLOBULIN RATIO 0.5 (0.8-2.0); ANION GAP 9.6 mmol/L (8-16); CALCIUM 8.2 mg/dL (8.4-10.2); CREATININE, SERUM 0.92 mg/dL (0.72-1.25); POTASSIUM 3.6 mmol/L (3.5-5.1)
[2021-01-20 08:03] LABS: ABG PH 7.25 (7.35-7.45)
[2021-01-20 08:04] LABS: ABG HCO3 34 mmol/L (22-26); ABG PCO2 76 mmHg (35-45); ABG PO2 76 mmHg (80-105); ABG TCO2 36
[2021-01-20] MEDS: BALSAM PERU/CASTOR OIL 60 GM OINT...G. TP SCH (09:28)
[2021-01-20] MEDS: HEPARIN SOD (PORCINE) 5,000 UNIT/ML VIAL SC SCH (09:38)
[2021-01-20] MEDS: MIDAZOLAM HCL 5MG/ML 10ML VIAL 100 ML IV PRN ×3 (09:39→22:37)
[2021-01-20] MEDS: FENTANYL 2000MCG/NS 250 250 ML IV SCH ×2 (09:40→19:30)
[2021-01-20] MEDS ORDERED: SODIUM CHLORIDE 0.9% 50ML 100 ML ONE (09:45)
[2021-01-20] MEDS: Vancomycin IV 1.25 GM in SODIUM CHLORIDE 0.9% 250ML 250 ML IV SCH (10:52)
[2021-01-20] MEDS: ASCORBIC ACID 500 MG TAB PO SCH ×2 (10:53→16:16)
[2021-01-20] MEDS: ZINC SULFATE 50 MG CAP PO SCH (10:53)
[2021-01-20] MEDS: DOCUSATE SODIUM LIQD 100 MG/10 ML UDC NG SCH ×2 (10:53→15:43)
[2021-01-20 10:56] LABS: BASOPHILS # (AUTO) 0.1 (0.0-0.1); BASOPHILS % 0.4 % (0.0-1.0); EOSINOPHILS # (AUTO) 0.7 (0.0-0.4); EOSINOPHILS % 6.3 % (0.0-6.0); HEMATOCRIT 28.7 % (38.2-49.6); HEMOGLOBIN 8.4 g/dL (14.0-18.0); LYMPHOCYTES % 8.5 % (18.0-39.1); MEAN CORPUSCULAR HEMOGLOBIN 29.2 pg (28-32); MEAN CORPUSCULAR HGB CONC 29.3 g/dL (31-35); MEAN CORPUSCULAR VOLUME 99.7 fL (81-99); MONOCYTES # (AUTO) 0.9 (0.2-0.8); MONOCYTES % 7.7 % (4.4-11.3); NEUTROPHILS # (AUTO) 7.8 (2.1-6.9); NEUTROPHILS % 70.1 % (38.7-80.0); PLATELET COUNT 148 x10e3/uL (140-360); RED BLOOD COUNT 2.88 x10e6/uL (4.3-5.7)
[2021-01-20] MEDS ORDERED: MEROPENEM 500 MG VIAL ONE (10:56)
[2021-01-20] MEDS ORDERED: SODIUM CHLORIDE 0.9% 250ML 250 ML ONE (10:56)
[2021-01-20] MEDS: PROPOFOL IV EMULSION 10MG/ML 100 ML IV PRN ×2 (11:05→22:40)
[2021-01-20 11:18] LABS: ALBUMIN 1.8 g/dL (3.5-5.0); ALBUMIN/GLOBULIN RATIO 0.5 (0.8-2.0); ANION GAP 9.7 mmol/L (8-16); CALCIUM 8.3 mg/dL (8.4-10.2); CREATININE, SERUM 0.9 mg/dL (0.72-1.25); POTASSIUM 3.7 mmol/L (3.5-5.1)
[2021-01-20] MEDS: NOREPINEPHRINE 8 MG/D5W 250 ML 250 ML IV SCH (15:43)
[2021-01-20 15:56] LABS: ABG HCO3 34 mmol/L (22-26); ABG PCO2 79 mmHg (35-45); ABG PH 7.24 (7.35-7.45); ABG PO2 61 mmHg (80-105); ABG TCO2 36
[2021-01-20] MEDS: FINASTERIDE 5 MG TAB PO SCH (21:31)
[2021-01-21] VITALS (27 sets, daily range): BP systolic 95–114; BP diastolic 43–92
[2021-01-21] MEDS: FENTANYL 2000MCG/NS 250 250 ML IV SCH ×3 (01:59→13:37)
[2021-01-21] MEDS: MIDAZOLAM HCL 5MG/ML 10ML VIAL 100 ML IV PRN ×4 (03:38→18:51)
[2021-01-21] MEDS: PROPOFOL IV EMULSION 10MG/ML 100 ML IV PRN ×4 (04:53→18:51)
[2021-01-21] MEDS: MEROPENEM 500 MG in SODIUM CHLORIDE 0.9% 50ML 50 ML IV SCH ×3 (05:49→22:10)
[2021-01-21] MEDS: METOCLOPRAMIDE HCL 10 MG/2ML VIAL IV SCH ×3 (05:49→22:10)
[2021-01-21] MEDS: BALSAM PERU/CASTOR OIL 60 GM OINT...G. TP SCH (08:50)
[2021-01-21] MEDS: ASCORBIC ACID 500 MG TAB PO SCH (09:12)
[2021-01-21] MEDS: DOCUSATE SODIUM LIQD 100 MG/10 ML UDC NG SCH ×2 (09:12→17:25)
[2021-01-21] MEDS: Vancomycin IV 1.25 GM in SODIUM CHLORIDE 0.9% 250ML 250 ML IV SCH (09:12)
[2021-01-21] MEDS: ZINC SULFATE 50 MG CAP PO SCH (09:12)
[2021-01-21 09:15] LABS: ABG HCO3 31 mmol/L (22-26); ABG PCO2 86 mmHg (35-45); ABG PH 7.16 (7.35-7.45); ABG PO2 54 mmHg (80-105); ABG TCO2 34
[2021-01-21 10:44] LABS: BASOPHILS # (AUTO) 0.1 (0.0-0.1); BASOPHILS % 0.6 % (0.0-1.0); EOSINOPHILS # (AUTO) 0.2 (0.0-0.4); EOSINOPHILS % 1.3 % (0.0-6.0); HEMATOCRIT 31.2 % (38.2-49.6); LYMPHOCYTES # (AUTO) 1.1 (1.0-3.2); LYMPHOCYTES % 6.3 % (18.0-39.1); MEAN CORPUSCULAR HEMOGLOBIN 29.7 pg (28-32); MEAN CORPUSCULAR HGB CONC 28.8 g/dL (31-35); MONOCYTES # (AUTO) 1.9 (0.2-0.8); MONOCYTES % 11.3 % (4.4-11.3); NEUTROPHILS # (AUTO) 12.2 (2.1-6.9); PLATELET COUNT 180 x10e3/uL (140-360); RED BLOOD COUNT 3.03 x10e6/uL (4.3-5.7); RED CELL DISTRIBUTION WIDTH 16.2 % (11.7-14.4)
[2021-01-21 11:11] LABS: ANION GAP 13.6 mmol/L (8-16); CALCIUM 8.3 mg/dL (8.4-10.2); CREATININE, SERUM 1.2 mg/dL (0.72-1.25); POTASSIUM 4.6 mmol/L (3.5-5.1)
[2021-01-21] MEDS: ROCURONIUM 1250MG/NS 250 250 ML IV PRN (15:19)
[2021-01-21 15:49] LABS: ABG PH 7.18 (7.35-7.45)
[2021-01-21 15:50] LABS: ABG HCO3 32 mmol/L (22-26); ABG PCO2 85 mmHg (35-45); ABG PO2 62 mmHg (80-105); ABG TCO2 34
[2021-01-21] MEDS: NOREPINEPHRINE 8 MG/D5W 250 ML 250 ML IV SCH (17:25)
[2021-01-21] MEDS: FINASTERIDE 5 MG TAB PO SCH (22:10)
[2021-01-21] MEDS: Vancomycin IV 1 GM in SODIUM CHLORIDE 0.9% 250ML 250 ML IV SCH (22:10)
[2021-01-22] VITALS (25 sets, daily range): BP systolic 89–128; BP diastolic 37–56
[2021-01-22] MEDS: METOCLOPRAMIDE HCL 10 MG/2ML VIAL IV SCH ×3 (06:36→21:28)
[2021-01-22] MEDS: MEROPENEM 500 MG in SODIUM CHLORIDE 0.9% 50ML 50 ML IV SCH ×3 (06:36→22:46)
[2021-01-22 06:43] LABS: BASOPHILS # (AUTO) 0.1 (0.0-0.1); BASOPHILS % 0.6 % (0.0-1.0); EOSINOPHILS # (AUTO) 0.5 (0.0-0.4); EOSINOPHILS % 2.9 % (0.0-6.0); HEMATOCRIT 28.7 % (38.2-49.6); HEMOGLOBIN 8.4 g/dL (14.0-18.0); LYMPHOCYTES # (AUTO) 1.1 (1.0-3.2); MEAN CORPUSCULAR HEMOGLOBIN 29.5 pg (28-32); MEAN CORPUSCULAR HGB CONC 29.3 g/dL (31-35); MEAN CORPUSCULAR VOLUME 100.7 fL (81-99); MONOCYTES # (AUTO) 1.4 (0.2-0.8); MONOCYTES % 8.5 % (4.4-11.3); NEUTROPHILS # (AUTO) 12.1 (2.1-6.9); NEUTROPHILS % 74.1 % (38.7-80.0); PLATELET COUNT 200 x10e3/uL (140-360); RED BLOOD COUNT 2.85 x10e6/uL (4.3-5.7); RED CELL DISTRIBUTION WIDTH 16.3 % (11.7-14.4)
[2021-01-22 07:08] LABS: ALBUMIN 1.6 g/dL (3.5-5.0); ALBUMIN/GLOBULIN RATIO 0.4 (0.8-2.0); ANION GAP 13.6 mmol/L (8-16); CALCIUM 8.3 mg/dL (8.4-10.2); CREATININE, SERUM 1.31 mg/dL (0.72-1.25); POTASSIUM 4.6 mmol/L (3.5-5.1)
[2021-01-22 08:35] LABS: ABG PH 7.16 (7.35-7.45)
[2021-01-22 08:36] LABS: ABG HCO3 33 mmol/L (22-26); ABG PCO2 93 mmHg (35-45); ABG PO2 63 mmHg (80-105); ABG TCO2 36
[2021-01-22] MEDS: DOCUSATE SODIUM LIQD 100 MG/10 ML UDC NG SCH ×2 (09:27→16:36)
[2021-01-22] MEDS: Vancomycin IV 1 GM in SODIUM CHLORIDE 0.9% 250ML 250 ML IV SCH ×2 (09:27→21:15)
[2021-01-22] MEDS: BALSAM PERU/CASTOR OIL 60 GM OINT...G. TP SCH (09:27)
[2021-01-22] MEDS: PROPOFOL IV EMULSION 10MG/ML 100 ML IV PRN ×3 (09:27→23:46)
[2021-01-22] MEDS: MIDAZOLAM HCL 5MG/ML 10ML VIAL 100 ML IV PRN ×3 (09:47→20:50)
[2021-01-22] MEDS: ROCURONIUM 1250MG/NS 250 250 ML IV PRN (12:51)
[2021-01-22] MEDS: FENTANYL 2000MCG/NS 250 250 ML IV SCH ×3 (12:51→20:48)
[2021-01-22 15:46] LABS: ABG HCO3 31 mmol/L (22-26); ABG PCO2 79 mmHg (35-45); ABG PO2 52 mmHg (80-105); ABG TCO2 33
[2021-01-22] MEDS: NOREPINEPHRINE 8 MG/D5W 250 ML 250 ML IV SCH (16:36)
[2021-01-22] MEDS: FINASTERIDE 5 MG TAB PO SCH (21:15)
[2021-01-23] VITALS (22 sets, daily range): BP systolic 90–126; BP diastolic 44–73
[2021-01-23] MEDS: MIDAZOLAM HCL 5MG/ML 10ML VIAL 100 ML IV PRN ×5 (01:46→23:35)
[2021-01-23] MEDS: FENTANYL 2000MCG/NS 250 250 ML IV SCH ×3 (04:32→17:35)
[2021-01-23] MEDS: PROPOFOL IV EMULSION 10MG/ML 100 ML IV PRN ×2 (04:50→21:10)
[2021-01-23] MEDS: METOCLOPRAMIDE HCL 10 MG/2ML VIAL IV SCH ×3 (05:54→21:10)
[2021-01-23] MEDS: MEROPENEM 500 MG in SODIUM CHLORIDE 0.9% 50ML 50 ML IV SCH (05:54)
[2021-01-23 06:26] LABS: BASOPHILS # (AUTO) 0.1 (0.0-0.1); BASOPHILS % 0.7 % (0.0-1.0); EOSINOPHILS # (AUTO) 0.3 (0.0-0.4); EOSINOPHILS % 1.9 % (0.0-6.0); HEMOGLOBIN 8.5 g/dL (14.0-18.0); LYMPHOCYTES # (AUTO) 1.1 (1.0-3.2); LYMPHOCYTES % 5.9 % (18.0-39.1); MEAN CORPUSCULAR HEMOGLOBIN 29.2 pg (28-32); MEAN CORPUSCULAR HGB CONC 28.3 g/dL (31-35); MEAN CORPUSCULAR VOLUME 103.1 fL (81-99); MONOCYTES # (AUTO) 1.4 (0.2-0.8); MONOCYTES % 7.9 % (4.4-11.3); NEUTROPHILS % 73.3 % (38.7-80.0); PLATELET COUNT 204 x10e3/uL (140-360); RED BLOOD COUNT 2.91 x10e6/uL (4.3-5.7); RED CELL DISTRIBUTION WIDTH 16.5 % (11.7-14.4)
[2021-01-23 06:49] LABS: ALBUMIN 1.7 g/dL (3.5-5.0); ALBUMIN/GLOBULIN RATIO 0.4 (0.8-2.0); ANION GAP 12.9 mmol/L (8-16); CALCIUM 8.6 mg/dL (8.4-10.2); CREATININE, SERUM 1.43 mg/dL (0.72-1.25); POTASSIUM 4.9 mmol/L (3.5-5.1)
[2021-01-23] MEDS: ROCURONIUM 1250MG/NS 250 250 ML IV PRN (06:52)
[2021-01-23] MEDS: Vancomycin IV 1 GM in SODIUM CHLORIDE 0.9% 250ML 250 ML IV SCH (08:41)
[2021-01-23] MEDS: DOCUSATE SODIUM LIQD 100 MG/10 ML UDC NG SCH ×2 (08:41→17:34)
[2021-01-23 08:58] LABS: ABG PH 7.14 (7.35-7.45)
[2021-01-23 08:59] LABS: ABG HCO3 29 mmol/L (22-26); ABG PCO2 85 mmHg (35-45); ABG PO2 57 mmHg (80-105); ABG TCO2 31
[2021-01-23] MEDS: BALSAM PERU/CASTOR OIL 60 GM OINT...G. TP SCH (10:00)
[2021-01-23] MEDS: NOREPINEPHRINE 8 MG/D5W 250 ML 250 ML IV SCH (15:30)
[2021-01-24] VITALS (24 sets, daily range): BP systolic 96–127; BP diastolic 42–54
[2021-01-24] MEDS: FENTANYL 2000MCG/NS 250 250 ML IV SCH ×4 (01:02→22:10)
[2021-01-24] MEDS: PROPOFOL IV EMULSION 10MG/ML 100 ML IV PRN ×2 (02:46→07:00)
[2021-01-24] MEDS: ROCURONIUM 1250MG/NS 250 250 ML IV PRN ×2 (04:28→22:08)
[2021-01-24] MEDS: MIDAZOLAM HCL 5MG/ML 10ML VIAL 100 ML IV PRN ×4 (04:59→22:09)
[2021-01-24] MEDS: METOCLOPRAMIDE HCL 10 MG/2ML VIAL IV SCH ×3 (05:17→22:10)
[2021-01-24 06:59] LABS: BASOPHILS # (AUTO) 0.1 (0.0-0.1); BASOPHILS % 0.4 % (0.0-1.0); EOSINOPHILS # (AUTO) 0.1 (0.0-0.4); EOSINOPHILS % 0.3 % (0.0-6.0); HEMATOCRIT 26.7 % (38.2-49.6); HEMOGLOBIN 7.6 g/dL (14.0-18.0); LYMPHOCYTES # (AUTO) 1.5 (1.0-3.2); LYMPHOCYTES % 7.4 % (18.0-39.1); MEAN CORPUSCULAR HEMOGLOBIN 29.5 pg (28-32); MEAN CORPUSCULAR HGB CONC 28.5 g/dL (31-35); MEAN CORPUSCULAR VOLUME 103.5 fL (81-99); MONOCYTES # (AUTO) 1.9 (0.2-0.8); MONOCYTES % 9.6 % (4.4-11.3); NEUTROPHILS # (AUTO) 13.6 (2.1-6.9); PLATELET COUNT 304 x10e3/uL (140-360); RED BLOOD COUNT 2.58 x10e6/uL (4.3-5.7); RED CELL DISTRIBUTION WIDTH 16.1 % (11.7-14.4)
[2021-01-24 07:09] LABS: ALBUMIN 1.7 g/dL (3.5-5.0); ALBUMIN/GLOBULIN RATIO 0.4 (0.8-2.0); ANION GAP 15.6 mmol/L (8-16); CALCIUM 8.2 mg/dL (8.4-10.2); CREATININE, SERUM 1.9 mg/dL (0.72-1.25); POTASSIUM 5.6 mmol/L (3.5-5.1)
[2021-01-24] MEDS: DOCUSATE SODIUM LIQD 100 MG/10 ML UDC NG SCH ×2 (08:25→17:22)
[2021-01-24] MEDS: BALSAM PERU/CASTOR OIL 60 GM OINT...G. TP SCH (08:25)
[2021-01-24 09:42] LABS: ABG PCO2 98 mmHg (35-45); ABG PH 7.05 (7.35-7.45); ABG PO2 90 mmHg (80-105)
[2021-01-24 09:43] LABS: ABG HCO3 27 mmol/L (22-26); ABG TCO2 30
[2021-01-24 14:01] LABS: ABG PH 7.11 (7.35-7.45)
[2021-01-24 14:02] LABS: ABG HCO3 28 mmol/L (22-26); ABG PCO2 88 mmHg (35-45); ABG PO2 115 mmHg (80-105); ABG TCO2 30
[2021-01-24] MEDS: NOREPINEPHRINE 8 MG/D5W 250 ML 250 ML IV SCH ×2 (15:00→22:08)
[2021-01-24] MEDS ORDERED: FUROSEMIDE INJ 10 MG/ML 4 ML VIAL IV NR (15:00)
[2021-01-24] MEDS ORDERED: SOD POLYSTYRENE SULFONATE SUSP 15 GM/60 ML BTL PO NR (15:00)
[2021-01-25] VITALS (28 sets, daily range): BP systolic 77–119; BP diastolic 40–69
[2021-01-25] MEDS: MIDAZOLAM HCL 5MG/ML 10ML VIAL 100 ML IV PRN ×4 (03:26→19:09)
[2021-01-25] MEDS: PROPOFOL IV EMULSION 10MG/ML 100 ML IV PRN ×2 (04:59→22:59)
[2021-01-25] MEDS: FENTANYL 2000MCG/NS 250 250 ML IV SCH ×3 (05:00→19:07)
[2021-01-25] MEDS: METOCLOPRAMIDE HCL 10 MG/2ML VIAL IV SCH ×3 (05:52→22:39)
[2021-01-25 06:51] LABS: BASOPHILS # (AUTO) 0.1 (0.0-0.1); BASOPHILS % 0.3 % (0.0-1.0); EOSINOPHILS % 0.1 % (0.0-6.0); LYMPHOCYTES # (AUTO) 1.8 (1.0-3.2); LYMPHOCYTES % 6.6 % (18.0-39.1); MEAN CORPUSCULAR HEMOGLOBIN 29.6 pg (28-32); MEAN CORPUSCULAR HGB CONC 29.6 g/dL (31-35); MONOCYTES # (AUTO) 2.6 (0.2-0.8); MONOCYTES % 9.4 % (4.4-11.3); NEUTROPHILS # (AUTO) 18.2 (2.1-6.9); NEUTROPHILS % 66.2 % (38.7-80.0); PLATELET COUNT 324 x10e3/uL (140-360); RED BLOOD COUNT 2.03 x10e6/uL (4.3-5.7); RED CELL DISTRIBUTION WIDTH 16.2 % (11.7-14.4)
[2021-01-25 07:06] LABS: HEMATOCRIT 20.3 % (38.2-49.6)
[2021-01-25 07:11] LABS: ALBUMIN 1.5 g/dL (3.5-5.0); ALBUMIN/GLOBULIN RATIO 0.4 (0.8-2.0); ANION GAP 14.8 mmol/L (8-16); CALCIUM 7.7 mg/dL (8.4-10.2); CREATININE, SERUM 2.26 mg/dL (0.72-1.25); POTASSIUM 5.8 mmol/L (3.5-5.1)
[2021-01-25] MEDS ORDERED: SODIUM CHLORIDE 0.9% 250ML 250 ML IV ONE (07:45)
[2021-01-25 08:36] LABS: ABG PH 7.11 (7.35-7.45)
[2021-01-25 08:37] LABS: ABG HCO3 27 mmol/L (22-26); ABG PCO2 85 mmHg (35-45); ABG PO2 136 mmHg (80-105); ABG TCO2 30
[2021-01-25] MEDS: DOCUSATE SODIUM LIQD 100 MG/10 ML UDC NG SCH ×2 (08:50→17:00)
[2021-01-25] MEDS: BALSAM PERU/CASTOR OIL 60 GM OINT...G. TP SCH (08:50)
[2021-01-25 09:04] LABS: BAND NEUTROPHILS % (MANUAL) 4 %; LYMPHOCYTES % (MANUAL) 4 % (19-48); METAMYELOCYTES % (MANUAL) 2 % (0-0); MONOCYTES % (MANUAL) 3 % (3.4-9.0); MYELOCYTES % (MANUAL) 6 % (0-0); NEUTROPHILS % (MANUAL) 77 % (40-74); PLATELET ESTIMATE ADEQUATE; PLATELET MORPHOLOGY COMMENT FEW LARGE; PROMYELOCYTES % (MANUAL) 3 % (0-0)
[2021-01-25 09:05] LABS: HYPOCHROMASIA MODERATE; RBC MORPHOLOGY COMMENT NORMAL
[2021-01-25] MEDS: MICAFUNGIN SODIUM 100 ML IV SCH (13:00)
[2021-01-25] MEDS ORDERED: SOD POLYSTYRENE SULFONATE SUSP 15 GM/60 ML BTL PO ONE (13:45)
[2021-01-25] MEDS ORDERED: CALCIUM CHLORIDE 13.6 MEQ in SODIUM CHLORIDE 0.9% 100 ML 100 ML IV ONE (13:45)
[2021-01-25] MEDS ORDERED: FUROSEMIDE INJ 10 MG/ML 4 ML VIAL IV ONE (13:45)
[2021-01-25] MEDS ORDERED: DEXTROSE 50% SYRINGE 50 ML IV STA (13:53)
[2021-01-25] MEDS: PIPERACILLIN/TAZOBACTAM 2.25 GM in SODIUM CHLORIDE 0.9% 50ML 50 ML IV SCH ×2 (14:00→22:39)
[2021-01-25] MEDS: METRONIDAZOLE 500MG/NS 100ML 100 ML IV SCH ×2 (14:00→22:39)
[2021-01-25] MEDS ORDERED: INSULIN REGULAR, HUMAN 100 UNIT/1 ML IV NR (14:00)
[2021-01-25 14:48] LABS: ABG HCO3 26 mmol/L (22-26); ABG PCO2 82 mmHg (35-45); ABG PH 7.11 (7.35-7.45); ABG PO2 102 mmHg (80-105); ABG TCO2 28
[2021-01-25] MEDS: VANCOMYCIN 250MG/5ML ORAL SOLN PO SCH (18:47)
[2021-01-26] VITALS (26 sets, daily range): BP systolic 93–133; BP diastolic 42–52
[2021-01-26] MEDS: VANCOMYCIN 250MG/5ML ORAL SOLN PO SCH ×4 (00:36→18:00)
[2021-01-26] MEDS: FENTANYL 2000MCG/NS 250 250 ML IV SCH ×4 (01:08→22:00)
[2021-01-26] MEDS: MIDAZOLAM HCL 5MG/ML 10ML VIAL 100 ML IV PRN ×6 (01:09→22:01)
[2021-01-26] MEDS: PROPOFOL IV EMULSION 10MG/ML 100 ML IV PRN ×4 (03:16→22:02)
[2021-01-26 05:02] LABS: BASOPHILS # (AUTO) 0.1 (0.0-0.1); BASOPHILS % 0.3 % (0.0-1.0); EOSINOPHILS # (AUTO) 0.1 (0.0-0.4); EOSINOPHILS % 0.3 % (0.0-6.0); HEMOGLOBIN 7.3 g/dL (14.0-18.0); LYMPHOCYTES # (AUTO) 1.7 (1.0-3.2); LYMPHOCYTES % 4.8 % (18.0-39.1); MEAN CORPUSCULAR HEMOGLOBIN 28.4 pg (28-32); MEAN CORPUSCULAR HGB CONC 31.7 g/dL (31-35); MONOCYTES # (AUTO) 3.4 (0.2-0.8); MONOCYTES % 9.7 % (4.4-11.3); NEUTROPHILS # (AUTO) 21.9 (2.1-6.9); PLATELET COUNT 324 x10e3/uL (140-360); RED BLOOD COUNT 2.57 x10e6/uL (4.3-5.7)
[2021-01-26 05:05] LABS: MEAN CORPUSCULAR VOLUME 89.5 fL (81-99); RED CELL DISTRIBUTION WIDTH 19.9 % (11.7-14.4)
[2021-01-26 05:24] LABS: ALBUMIN 1.4 g/dL (3.5-5.0); ALBUMIN/GLOBULIN RATIO 0.3 (0.8-2.0); ANION GAP 14.4 mmol/L (8-16); CALCIUM 7.6 mg/dL (8.4-10.2); CREATININE, SERUM 2.38 mg/dL (0.72-1.25); POTASSIUM 5.4 mmol/L (3.5-5.1)
[2021-01-26] MEDS: PIPERACILLIN/TAZOBACTAM 2.25 GM in SODIUM CHLORIDE 0.9% 50ML 50 ML IV SCH ×3 (05:41→22:39)
[2021-01-26] MEDS: METOCLOPRAMIDE HCL 10 MG/2ML VIAL IV SCH ×3 (05:41→22:39)
[2021-01-26] MEDS: METRONIDAZOLE 500MG/NS 100ML 100 ML IV SCH ×3 (05:41→22:39)
[2021-01-26] MEDS ORDERED: SODIUM CHLORIDE 0.9% 1000ML 1,000 ML ONE (07:25)
[2021-01-26 07:54] LABS: BAND NEUTROPHILS % (MANUAL) 2 %; LYMPHOCYTES % (MANUAL) 6 % (19-48); METAMYELOCYTES % (MANUAL) 3 % (0-0); MONOCYTES % (MANUAL) 4 % (3.4-9.0); MYELOCYTES % (MANUAL) 12 % (0-0); NEUTROPHILS % (MANUAL) 72 % (40-74); NUCLEATED RED BLOOD CELLS 14; PROMYELOCYTES % (MANUAL) 1 % (0-0)
[2021-01-26 07:55] LABS: ANISOCYTOSIS MODERATE; HYPOCHROMASIA MODERATE; PLATELET ESTIMATE ADEQUATE; PLATELET MORPHOLOGY COMMENT FEW LARGE; RBC MORPHOLOGY COMMENT ABNORMAL
[2021-01-26 07:56] LABS: ELLIPTOCYTE, RBC SLIGHT; POIKILOCYTOSIS SLIGHT
[2021-01-26] MEDS: BALSAM PERU/CASTOR OIL 60 GM OINT...G. TP SCH (08:44)
[2021-01-26] MEDS: DOCUSATE SODIUM LIQD 100 MG/10 ML UDC NG SCH ×2 (08:52→17:46)
[2021-01-26 09:05] LABS: ABG HCO3 22 mmol/L (22-26); ABG PCO2 65 mmHg (35-45); ABG PH 7.13 (7.35-7.45); ABG PO2 63 mmHg (80-105)
[2021-01-26 09:06] LABS: ABG TCO2 23
[2021-01-26] MEDS ORDERED: HEPARIN SOD (PORCINE) 1000 UNIT/ML SDV ONE (12:21)
[2021-01-26] MEDS: MICAFUNGIN SODIUM 100 ML IV SCH (13:09)
[2021-01-26] MEDS: Vancomycin IV 1 GM in SODIUM CHLORIDE 0.9% 250ML 250 ML IV SCH (17:46)
[2021-01-26] MEDS: NOREPINEPHRINE 8 MG/D5W 250 ML 250 ML IV SCH (19:09)
[2021-01-26] MEDS ORDERED: HEPARIN SOD (PORCINE) 1000 UNIT/ML SDV IV PRN (19:45)
[2021-01-27] VITALS (29 sets, daily range): BP systolic 78–129; BP diastolic 39–61
[2021-01-27] MEDS: VANCOMYCIN 250MG/5ML ORAL SOLN PO SCH ×5 (00:36→23:19)
[2021-01-27] MEDS: PROPOFOL IV EMULSION 10MG/ML 100 ML IV PRN ×6 (03:42→21:51)
[2021-01-27] MEDS: NOREPINEPHRINE 8 MG/D5W 250 ML 250 ML IV SCH ×5 (03:42→23:19)
[2021-01-27] MEDS: ROCURONIUM 1250MG/NS 250 250 ML IV PRN ×2 (03:42→15:18)
[2021-01-27] MEDS: MIDAZOLAM HCL 5MG/ML 10ML VIAL 100 ML IV PRN ×5 (03:44→23:51)
[2021-01-27] MEDS: FENTANYL 2000MCG/NS 250 250 ML IV SCH ×3 (04:45→18:45)
[2021-01-27] MEDS: PIPERACILLIN/TAZOBACTAM 2.25 GM in SODIUM CHLORIDE 0.9% 50ML 50 ML IV SCH ×3 (05:49→21:45)
[2021-01-27] MEDS: METRONIDAZOLE 500MG/NS 100ML 100 ML IV SCH ×3 (05:49→21:45)
[2021-01-27] MEDS: METOCLOPRAMIDE HCL 10 MG/2ML VIAL IV SCH ×3 (05:49→21:45)
[2021-01-27 06:37] LABS: BASOPHILS # (AUTO) 0.1 (0.0-0.1); BASOPHILS % 0.4 % (0.0-1.0); EOSINOPHILS % 0.1 % (0.0-6.0); HEMATOCRIT 22.7 % (38.2-49.6); LYMPHOCYTES # (AUTO) 1.7 (1.0-3.2); LYMPHOCYTES % 5.6 % (18.0-39.1); MEAN CORPUSCULAR HEMOGLOBIN 28.6 pg (28-32); MEAN CORPUSCULAR VOLUME 95.4 fL (81-99); MONOCYTES # (AUTO) 3.6 (0.2-0.8); MONOCYTES % 11.7 % (4.4-11.3); NEUTROPHILS # (AUTO) 19.3 (2.1-6.9); PLATELET COUNT 365 x10e3/uL (140-360); RED BLOOD COUNT 2.38 x10e6/uL (4.3-5.7); RED CELL DISTRIBUTION WIDTH 20.2 % (11.7-14.4)
[2021-01-27 06:49] LABS: HEMOGLOBIN 6.8 g/dL (14.0-18.0)
[2021-01-27 06:54] LABS: CALCIUM IONIZED 1.1 mmol/L (1.09-1.30)
[2021-01-27] MEDS ORDERED: SODIUM CHLORIDE 0.9% 250ML 250 ML IV NR (07:00)
[2021-01-27 07:10] LABS: ABG HCO3 25 mmol/L (22-26); ABG PCO2 95 mmHg (35-45); ABG PH 7.02 (7.35-7.45); ABG PO2 62 mmHg (80-105); ABG TCO2 27
[2021-01-27 07:23] LABS: ALBUMIN 1.6 g/dL (3.5-5.0); ALBUMIN/GLOBULIN RATIO 0.4 (0.8-2.0); ANION GAP 14.4 mmol/L (8-16); CALCIUM 7.3 mg/dL (8.4-10.2); CREATININE, SERUM 2.04 mg/dL (0.72-1.25); POTASSIUM 4.4 mmol/L (3.5-5.1)
[2021-01-27 07:31] LABS: BAND NEUTROPHILS % (MANUAL) 2 %; LYMPHOCYTES % (MANUAL) 9 % (19-48); METAMYELOCYTES % (MANUAL) 5 % (0-0); MONOCYTES % (MANUAL) 9 % (3.4-9.0); MYELOCYTES % (MANUAL) 13 % (0-0); NEUTROPHILS % (MANUAL) 61 % (40-74); NUCLEATED RED BLOOD CELLS 17; PROMYELOCYTES % (MANUAL) 1 % (0-0)
[2021-01-27 07:33] LABS: PLATELET ESTIMATE ADEQUATE; PLATELET MORPHOLOGY COMMENT FEW LARGE
[2021-01-27 07:34] LABS: POLYCHROMASIA FEW; RBC MORPHOLOGY COMMENT NORMAL
[2021-01-27 07:36] LABS: PHOSPHORUS 6.8 MG/DL (2.3-4.7)
[2021-01-27] MEDS: BALSAM PERU/CASTOR OIL 60 GM OINT...G. TP SCH (08:10)
[2021-01-27] MEDS: DOCUSATE SODIUM LIQD 100 MG/10 ML UDC NG SCH ×2 (08:10→16:34)
[2021-01-27] MEDS: MICAFUNGIN SODIUM 100 ML IV SCH (11:53)
[2021-01-27] MEDS: Vancomycin IV 1 GM in SODIUM CHLORIDE 0.9% 250ML 250 ML IV SCH (16:34)
[2021-01-27 21:44] LABS: BASOPHILS # (AUTO) 0.1 (0.0-0.1); BASOPHILS % 0.5 % (0.0-1.0); EOSINOPHILS # (AUTO) 0.1 (0.0-0.4); EOSINOPHILS % 0.2 % (0.0-6.0); HEMOGLOBIN 7.8 g/dL (14.0-18.0); LYMPHOCYTES % 3.4 % (18.0-39.1); MEAN CORPUSCULAR HEMOGLOBIN 28.8 pg (28-32); MEAN CORPUSCULAR HGB CONC 31.2 g/dL (31-35); MEAN CORPUSCULAR VOLUME 92.3 fL (81-99); MONOCYTES # (AUTO) 2.8 (0.2-0.8); MONOCYTES % 9.3 % (4.4-11.3); NEUTROPHILS # (AUTO) 21.9 (2.1-6.9); NEUTROPHILS % 72.2 % (38.7-80.0); PLATELET COUNT 303 x10e3/uL (140-360); RED BLOOD COUNT 2.71 x10e6/uL (4.3-5.7); RED CELL DISTRIBUTION WIDTH 19.2 % (11.7-14.4)
[2021-01-27] MEDS: VASOPRESSIN 60 UNIT in DEXTROSE 5% 50ML 57 ML IV PRN (21:54)
[2021-01-28] VITALS (24 sets, daily range): BP systolic 70–105; BP diastolic 40–49
[2021-01-28] MEDS: FENTANYL 2000MCG/NS 250 250 ML IV SCH ×4 (01:34→23:11)
[2021-01-28] MEDS: PROPOFOL IV EMULSION 10MG/ML 100 ML IV PRN ×6 (01:35→23:12)
[2021-01-28] MEDS: METRONIDAZOLE 500MG/NS 100ML 100 ML IV SCH ×3 (05:33→23:06)
[2021-01-28] MEDS: PIPERACILLIN/TAZOBACTAM 2.25 GM in SODIUM CHLORIDE 0.9% 50ML 50 ML IV SCH ×3 (05:33→23:06)
[2021-01-28] MEDS: VANCOMYCIN 250MG/5ML ORAL SOLN PO SCH ×4 (05:33→23:06)
[2021-01-28] MEDS: METOCLOPRAMIDE HCL 10 MG/2ML VIAL IV SCH ×3 (05:33→23:06)
[2021-01-28] MEDS: MIDAZOLAM HCL 5MG/ML 10ML VIAL 100 ML IV PRN ×5 (05:35→23:13)
[2021-01-28 06:14] LABS: BASOPHILS # (AUTO) 0.2 (0.0-0.1); BASOPHILS % 0.7 % (0.0-1.0); EOSINOPHILS # (AUTO) 0.1 (0.0-0.4); EOSINOPHILS % 0.4 % (0.0-6.0); HEMATOCRIT 24.9 % (38.2-49.6); HEMOGLOBIN 7.6 g/dL (14.0-18.0); LYMPHOCYTES % 3.4 % (18.0-39.1); MEAN CORPUSCULAR HEMOGLOBIN 28.5 pg (28-32); MEAN CORPUSCULAR HGB CONC 30.5 g/dL (31-35); MEAN CORPUSCULAR VOLUME 93.3 fL (81-99); MONOCYTES # (AUTO) 2.5 (0.2-0.8); MONOCYTES % 8.6 % (4.4-11.3); NEUTROPHILS # (AUTO) 20.4 (2.1-6.9); NEUTROPHILS % 71.9 % (38.7-80.0); PLATELET COUNT 320 x10e3/uL (140-360); RED BLOOD COUNT 2.67 x10e6/uL (4.3-5.7); RED CELL DISTRIBUTION WIDTH 19.3 % (11.7-14.4)
[2021-01-28 06:44] LABS: ALBUMIN 1.5 g/dL (3.5-5.0); ALBUMIN/GLOBULIN RATIO 0.4 (0.8-2.0); ANION GAP 13.9 mmol/L (8-16); CALCIUM 7.5 mg/dL (8.4-10.2); CREATININE, SERUM 1.84 mg/dL (0.72-1.25); POTASSIUM 3.9 mmol/L (3.5-5.1)
[2021-01-28 07:19] LABS: BAND NEUTROPHILS % (MANUAL) 5 %; LYMPHOCYTES % (MANUAL) 5 % (19-48); METAMYELOCYTES % (MANUAL) 3 % (0-0); MONOCYTES % (MANUAL) 11 % (3.4-9.0); MYELOCYTES % (MANUAL) 7 % (0-0); NEUTROPHILS % (MANUAL) 69 % (40-74); NUCLEATED RED BLOOD CELLS 24; PLATELET ESTIMATE ADEQUATE
[2021-01-28 07:20] LABS: PLATELET MORPHOLOGY COMMENT MODERATE GIANT; POLYCHROMASIA MODERATE; RBC MORPHOLOGY COMMENT ABNORMAL
[2021-01-28] MEDS: DOCUSATE SODIUM LIQD 100 MG/10 ML UDC NG SCH ×2 (08:09→17:05)
[2021-01-28] MEDS: BALSAM PERU/CASTOR OIL 60 GM OINT...G. TP SCH (08:10)
[2021-01-28 08:50] LABS: ABG PH 7.07 (7.35-7.45)
[2021-01-28 08:51] LABS: ABG HCO3 25 mmol/L (22-26); ABG PCO2 85 mmHg (35-45); ABG PO2 61 mmHg (80-105); ABG TCO2 27
[2021-01-28] MEDS ORDERED: SODIUM BICARBONATE 8.4% INJ 50 ML SYR IV ONE (09:30)
[2021-01-28] MEDS: PHENYLEPHRINE 10MG/ML VIAL 40 MG in DEXTROSE 5% 250ML 246 ML IV SCH ×2 (09:45→23:08)
[2021-01-28] MEDS: MICAFUNGIN SODIUM 100 ML IV SCH (12:02)
[2021-01-28 13:39] LABS: ABG HCO3 25 mmol/L (22-26); ABG PCO2 82 mmHg (35-45); ABG PH 7.09 (7.35-7.45); ABG PO2 60 mmHg (80-105); ABG TCO2 27
[2021-01-28] MEDS: ROCURONIUM 1250MG/NS 250 250 ML IV PRN ×3 (17:00→23:12)
[2021-01-28] MEDS: Vancomycin IV 1 GM in SODIUM CHLORIDE 0.9% 250ML 250 ML IV SCH (17:05)
[2021-01-28] MEDS: NOREPINEPHRINE 8 MG/D5W 250 ML 250 ML IV SCH (23:09)
[2021-01-29] VITALS (22 sets, daily range): BP systolic 44–108; BP diastolic 29–55
[2021-01-29] MEDS: MIDAZOLAM HCL 5MG/ML 10ML VIAL 100 ML IV PRN ×4 (02:32→15:33)
[2021-01-29] MEDS: VANCOMYCIN 250MG/5ML ORAL SOLN PO SCH ×3 (05:46→18:00)
[2021-01-29] MEDS: PIPERACILLIN/TAZOBACTAM 2.25 GM in SODIUM CHLORIDE 0.9% 50ML 50 ML IV SCH ×2 (05:46→15:30)
[2021-01-29] MEDS: METOCLOPRAMIDE HCL 10 MG/2ML VIAL IV SCH ×2 (05:46→15:00)
[2021-01-29] MEDS: METRONIDAZOLE 500MG/NS 100ML 100 ML IV SCH ×2 (05:46→15:00)
[2021-01-29] MEDS: PROPOFOL IV EMULSION 10MG/ML 100 ML IV PRN (05:47)
[2021-01-29] MEDS: VASOPRESSIN 60 UNIT in DEXTROSE 5% 50ML 57 ML IV PRN (05:47)
[2021-01-29] MEDS: PHENYLEPHRINE 10MG/ML VIAL 40 MG in DEXTROSE 5% 250ML 246 ML IV SCH (05:51)
[2021-01-29] MEDS: FENTANYL 2000MCG/NS 250 250 ML IV SCH ×2 (05:52→14:30)
[2021-01-29 06:38] LABS: ALBUMIN 1.1 g/dL (3.5-5.0); ALBUMIN/GLOBULIN RATIO 0.4 (0.8-2.0); ANION GAP 18.4 mmol/L (8-16); CREATININE, SERUM 2.35 mg/dL (0.72-1.25); POTASSIUM 4.4 mmol/L (3.5-5.1)
[2021-01-29 06:52] LABS: CALCIUM 5.7 mg/dL (8.4-10.2)
[2021-01-29 06:54] LABS: BASOPHILS # (AUTO) 0.1 (0.0-0.1); BASOPHILS % 0.4 % (0.0-1.0); HEMATOCRIT 22.3 % (38.2-49.6); LYMPHOCYTES # (AUTO) 0.8 (1.0-3.2); LYMPHOCYTES % 2.3 % (18.0-39.1); MEAN CORPUSCULAR HEMOGLOBIN 28.6 pg (28-32); MEAN CORPUSCULAR HGB CONC 29.1 g/dL (31-35); MEAN CORPUSCULAR VOLUME 98.2 fL (81-99); MONOCYTES # (AUTO) 2.5 (0.2-0.8); MONOCYTES % 7.4 % (4.4-11.3); NEUTROPHILS # (AUTO) 23.8 (2.1-6.9); NEUTROPHILS % 70.6 % (38.7-80.0); PLATELET COUNT 207 x10e3/uL (140-360); RED BLOOD COUNT 2.27 x10e6/uL (4.3-5.7); RED CELL DISTRIBUTION WIDTH 19.3 % (11.7-14.4)
[2021-01-29] MEDS ORDERED: DEXTROSE 50% SYRINGE 50 ML IV PRN (07:00)
[2021-01-29] MEDS ORDERED: DEXTROSE 50% SYRINGE 50 ML IV ONE (07:07)
[2021-01-29 07:12] LABS: HEMOGLOBIN 6.5 g/dL (14.0-18.0)
[2021-01-29] MEDS ORDERED: ACETAMINOPHEN 325 MG TAB PO STA (08:09)
[2021-01-29 08:10] LABS: BAND NEUTROPHILS % (MANUAL) 1 %; LYMPHOCYTES % (MANUAL) 3 % (19-48); METAMYELOCYTES % (MANUAL) 7 % (0-0); MONOCYTES % (MANUAL) 3 % (3.4-9.0); MYELOCYTES % (MANUAL) 7 % (0-0); NEUTROPHILS % (MANUAL) 79 % (40-74); NUCLEATED RED BLOOD CELLS 38; PLATELET ESTIMATE ADEQUATE; PLATELET MORPHOLOGY COMMENT FEW LARGE; RBC MORPHOLOGY COMMENT NORMAL
[2021-01-29 08:11] LABS: ABG HCO3 14 mmol/L (22-26); ABG PCO2 91 mmHg (35-45); ABG PO2 56 mmHg (80-105); ABG TCO2 17
[2021-01-29] MEDS ORDERED: SODIUM CHLORIDE 0.9% 250ML 250 ML IV ONE (08:15)
[2021-01-29] MEDS ORDERED: SODIUM BICARBONATE 8.4% INJ 50 ML SYR IV ONE ×3 (08:45→16:15)
[2021-01-29] MEDS: BALSAM PERU/CASTOR OIL 60 GM OINT...G. TP SCH (08:59)
[2021-01-29] MEDS: DOCUSATE SODIUM LIQD 100 MG/10 ML UDC NG SCH ×2 (08:59→17:00)
[2021-01-29] MEDS ORDERED: SODIUM BICARBONATE 8.4% 150 ML in DEXTROSE 5% 1,000 ML IV SCH (09:00)
[2021-01-29] MEDS: MICAFUNGIN SODIUM 100 ML IV SCH (12:02)
[2021-01-29] MEDS ORDERED: PHENYLEPHRINE 10MG/ML VIAL 40 MG in SODIUM CHLORIDE 0.9% 250ML 246 ML IV SCH (17:45)
== END 2021-01-29 23:15 | disposition expired | DRG 853 ==
LOC: ER 09:59 → ERHOLD 10:00 → IMCU 12-23 21:47 → COVIDICU 12-30 10:57
PROVIDERS: ADMIT Internal Medicine; ATTEND Internal Medicine
PROC: 8E0ZXY6 Isolation (ICD-10-PCS; 2020-12-22)
PROC: XW043E5 Introduction of Remdesivir Anti-infective into Central Vein, Percutaneous Approach, New Technology Group 5 (ICD-10-PCS; 2020-12-23)
PROC: 0BH17EZ Insertion of Endotracheal Airway into Trachea, Via Natural or Artificial Opening (ICD-10-PCS; principal; 2020-12-30)
PROC: 5A1955Z Respiratory Ventilation, Greater than 96 Consecutive Hours (ICD-10-PCS; 2020-12-30)
PROC: 03HC3DZ Insertion of Intraluminal Device into Left Radial Artery, Percutaneous Approach (ICD-10-PCS; 2020-12-30)
PROC: 5A1D70Z Performance of Urinary Filtration, Intermittent, Less than 6 Hours Per Day (ICD-10-PCS; 2021-01-16)
DX: A41.89 Other specified sepsis (principal); U07.1 COVID-19; J12.82 Pneumonia due to coronavirus disease 2019; J96.01 Acute respiratory failure with hypoxia; J69.0 Pneumonitis due to inhalation of food and vomit; R65.21 Severe sepsis with septic shock; J15.6 Pneumonia due to other Gram-negative bacteria; N17.9 Acute kidney failure, unspecified; E87.0 Hyperosmolality and hypernatremia; E87.2 Acidosis; D64.9 Anemia, unspecified; E87.6 Hypokalemia; D69.59 Other secondary thrombocytopenia; D72.810 Lymphocytopenia; Z99.81 Dependence on supplemental oxygen; Z66 Do not resuscitate; E87.8 Other disorders of electrolyte and fluid balance, not elsewhere classified; L89.159 Pressure ulcer of sacral region, unspecified stage; L89.629 Pressure ulcer of left heel, unspecified stage; L89.619 Pressure ulcer of right heel, unspecified stage
CPT/HCPCS: 36415; 36569; 36600; 71045; 74018; 80048; 80053; 80202; 81001; 82550; 82553; 82728; 82805; 82948; 83735; 83880; 84100; 84484; 85014; 85025; 85379; 86140; 86705; 86706; 86850; 86870; 86880; 86900; 86905; 86920; 87040; 87070; 87071; 87186; 87205; 87340; 90962; 93005; 93970; 94002; 94003; 99001; 99251; 99285; C1752; J0330; J0360; J0456; J0696; J1100; J1450; J1644; J1650; J1940; J2185; J2248; J2250; J2370; J2543; J2765; J3370; J3480; J7030; J7050; J7070; J7799; P9016; P9047; U0002